=== PATIENT | male | born 1960 | race Caucasian/White ===

== ENCOUNTER 2017-02-06 08:35 | Emergency (ER) | payer OTHER ==
[~2017-02-06] VITALS: Ht 177.8 cm; Wt 136.0 kg
[~2017-02-06 08:35] MED LIST: LISINOPRIL10 MG PO; ULTRAM50 MG OR
[2017-02-06 09:28] LABS: URINE BILIRUBIN - DIPSTICK NEGATIVE (NEGATIVE); URINE BLOOD DIPSTICK TRACE-INTACT (NEGATIVE); URINE CLARITY CLEAR; URINE COLOR YELLOW; URINE GLUCOSE - DIPSTICK NEGATIVE (NEGATIVE); URINE KETONE NEGATIVE (NEGATIVE); URINE LEUK ESTERASE NEGATIVE (NEGATIVE); URINE NITRITE - DIPSTICK NEGATIVE (Negative); URINE PH 5.5 (4.5-8.0); URINE PROTEIN - DIPSTICK NEGATIVE (NEG-TRACE); URINE UROBILINOGEN - DIPSTICK 0.2 E.U./dL (0.2)
[2017-02-06 09:28] LABS: HEMATOCRIT 47.2 % (39.0-50.0); HEMOGLOBIN 15.7 g/dl (14.0-18.0); IMMATURE GRANULOCYTES 0.3 % (0.0-1.0); MEAN CELL VOLUME 88.2 fL CALC (80.0-100.0); MEAN CORPUSCULAR HGB 29.3 pG CALC (26.0-32.0); MEAN CORPUSCULAR HGB CONC 33.3 g/L CALC (32.0-36.0); NEUT# 4.28 thou/uL (1.82-7.42); RED BLOOD COUNT 5.35 mill/uL (4.70-6.10); RED CELL DISTRI WIDTH 13.9 % (11.5-15.5)
[2017-02-06 09:50] LABS: ANION GAP 14 (6-22 (CALC)); BUN 14 mg/dL (9-20); BUN/CREATININE RATIO 23 (12-20 (CALC)); CALCIUM 9.9 mg/dL (8.4-10.2); CARBON DIOXIDE 24 mmol/l (22-30); CHLORIDE 107 mmol/l (95-108); CREATININE 0.6 mg/dL (0.7-1.3); GFR > 60 ML/MIN (>=60 (CALC)); GFR FOR AFR.AMER. > 60 ML/MIN (>=60 (CALC)); GLUCOSE 113 mg/dL (75-110); LIPASE 171 u/l (23-300); POTASSIUM 4.3 mmol/l (3.5-5.1); SODIUM 141 mmol/l (137-146)
[2017-02-06] MEDS ORDERED: CEPHALEXIN500 M1 PO (10:42)
[2017-02-06] MEDS ORDERED: MOTRIN400 MG PO (10:42)
[2017-02-06] MEDS ORDERED: FLEXERIL5 M1 PO (10:42)
[2017-02-06 10:50] VITALS: BP 129/74
== END 2017-02-06 10:50 | disposition home or self-care (01) | DRG 696 ==
LOC: ED 08:35
PROVIDERS: Family Medicine
DX: R31.9 Hematuria, unspecified (principal); I10 Essential (primary) hypertension; R10.9 Unspecified abdominal pain

== ENCOUNTER 2017-11-22 05:59 | Emergency (ER) | payer OTHER ==
[~2017-11-22] VITALS: Ht 177.8 cm; Wt 138.8 kg
[~2017-11-22 05:59] MED LIST changes: +CEPHALEXIN500 M1 PO; +FLEXERIL5 M1 PO; +MOTRIN400 MG PO
[2017-11-22] MEDS ORDERED: FLEXERIL PO (06:20)
[2017-11-22] MEDS ORDERED: TORADOL PO (06:20)
[2017-11-22 06:37] VITALS: BP 146/85
== END 2017-11-22 06:35 | disposition home or self-care (01) | DRG 563 ==
LOC: ED 05:59
DX: S29.012A Strain of muscle and tendon of back wall of thorax, initial encounter (principal); M79.1 Myalgia; X50.9XXA Other and unspecified overexertion or strenuous movements or postures, initial encounter; Y92.89 Other specified places as the place of occurrence of the external cause

== ENCOUNTER 2017-12-05 13:36 | Emergency (ER) | payer OTHER ==
[~2017-12-05] VITALS: Ht 177.8 cm; Wt 136.4 kg
[~2017-12-05 13:36] MED LIST changes: +FLEXERIL PO; +TORADOL PO
[2017-12-05 14:24] LABS: HEMATOCRIT 48.4 % (39.0-50.0); HEMOGLOBIN 16.1 g/dl (14.0-18.0); IMMATURE GRANULOCYTES 0.3 % (0.0-5.0); MEAN CELL VOLUME 87.7 fL CALC (80.0-100.0); MEAN CORPUSCULAR HGB 29.2 pG CALC (26.0-32.0); MEAN CORPUSCULAR HGB CONC 33.3 g/L CALC (32.0-36.0); NEUT# 5.77 thou/uL (1.82-7.42); RED BLOOD COUNT 5.52 mill/uL (4.70-6.10); RED CELL DISTRI WIDTH 13.2 % (11.5-15.5)
[2017-12-05 14:25] LABS: URINE BILIRUBIN - DIPSTICK NEGATIVE (NEGATIVE); URINE BLOOD DIPSTICK TRACE-INTACT (NEGATIVE); URINE COLOR YELLOW; URINE GLUCOSE - DIPSTICK NEGATIVE (NEGATIVE); URINE KETONE NEGATIVE (NEGATIVE); URINE NITRITE - DIPSTICK NEGATIVE (Negative); URINE PH 5.5 (4.5-8.0); URINE PROTEIN - DIPSTICK NEGATIVE (NEG-TRACE); URINE UROBILINOGEN - DIPSTICK 0.2 E.U./dL (0.2)
[2017-12-05 14:37] LABS: URINE CLARITY CLEAR; URINE LEUK ESTERASE SMALL (NEGATIVE)
[2017-12-05 14:39] LABS: URINE RBC 0-2 RBC/hpf (0-5); URINE WBC 0-2 WBC/hpf (0-5)
[2017-12-05 14:45] LABS: ALBUMIN 3.9 g/dL (3.2-5.0); ALKALINE PHOSPHATASE 91 u/l (38-126); ANION GAP 11 (6-22 (CALC)); BILIRUBIN, TOTAL 0.6 mg/dL (0.0-1.4); BUN 13 mg/dL (9-20); BUN/CREATININE RATIO 21 (12-20 (CALC)); CARBON DIOXIDE 26 mmol/l (22-30); CHLORIDE 104 mmol/l (95-108); CREATININE 0.6 mg/dL (0.7-1.3); GFR > 60 ML/MIN (>=60 (CALC)); GFR FOR AFR.AMER. > 60 ML/MIN (>=60 (CALC)); POTASSIUM 4.3 mmol/l (3.5-5.1); SGOT/AST 19 u/l (17-59); SGPT/ALT 24 u/l (21-72); SODIUM 138 mmol/l (137-146)
[2017-12-05] MEDS ORDERED: ULTRAM50 M1 PO (18:05)
[2017-12-05] MEDS ORDERED: CIPROFLOXACN750 MG PO (18:05)
[2017-12-05 18:06] VITALS: BP 129/69
== END 2017-12-05 18:16 | disposition home or self-care (01) | DRG 690 ==
LOC: ED 13:36
PROVIDERS: Emergency Medicine
DX: N39.0 Urinary tract infection, site not specified (principal); N28.1 Cyst of kidney, acquired

== ENCOUNTER 2019-01-16 04:42 | Emergency (ER) | payer OTHER ==
[~2019-01-16] VITALS: Ht 177.8 cm; Wt 141.0 kg
[~2019-01-16 04:42] MED LIST changes: +CIPROFLOXACN750 MG PO; +ULTRAM50 M1 PO
[2019-01-16] MEDS ORDERED: IBUPROFEN600 MG PO (06:50)
[2019-01-16 06:52] VITALS: BP 129/70
== END 2019-01-16 06:54 | disposition home or self-care (01) | DRG 605 ==
LOC: ED 04:42
DX: S60.211A Contusion of right wrist, initial encounter (principal); S20.211A Contusion of right front wall of thorax, initial encounter; W01.0XXA Fall on same level from slipping, tripping and stumbling without subsequent striking against object, initial encounter; Y92.009 Unspecified place in unspecified non-institutional (private) residence as the place of occurrence of the external cause

== ENCOUNTER 2020-01-23 19:54 | Emergency (ER) | payer SELFPAY ==
[~2020-01-23] VITALS: Ht 170.2 cm; Wt 136.4 kg
[~2020-01-23 19:54] MED LIST changes: +IBUPROFEN600 MG PO
[2020-01-23 20:43] LABS: HEMATOCRIT 52.1 % (39.0-50.0); HEMOGLOBIN 16.5 g/dl (14.0-18.0); IMMATURE GRANULOCYTES 0.3 % (0.0-5.0); MEAN CELL VOLUME 86.7 fL CALC (80.0-100.0); MEAN CORPUSCULAR HGB 27.5 pG CALC (26.0-32.0); MEAN CORPUSCULAR HGB CONC 31.7 g/dL CAL (32.0-36.0); NEUT# 7.03 thou/uL (1.82-7.42); RED BLOOD COUNT 6.01 mill/uL (4.70-6.10); RED CELL DISTRI WIDTH 13.3 % (11.5-15.5)
[2020-01-23] MEDS ORDERED: LISINOPRIL10 MG PO (20:55)
[2020-01-23] MEDS ORDERED: ATIVAN1 MG PO (20:55)
[2020-01-23 20:56] LABS: ALBUMIN 4.3 g/dL (3.2-5.0); ALKALINE PHOSPHATASE 105 u/l (38-126); ANION GAP 10 (6-22 (CALC)); BILIRUBIN, TOTAL 0.6 mg/dL (0.0-1.4); BUN 16 mg/dL (9-20); BUN/CREATININE RATIO 23 (12-20 (CALC)); CARBON DIOXIDE 30 mmol/l (22-30); CHLORIDE 99 mmol/l (95-108); CREATININE 0.7 mg/dL (0.7-1.3); GFR > 60 ML/MIN (>=60 (CALC)); GFR FOR AFR.AMER. > 60 ML/MIN (>=60 (CALC)); POTASSIUM 4.4 mmol/l (3.5-5.1); SGOT/AST 25 u/l (17-59); SODIUM 135 mmol/l (137-146); TOTAL PROTEIN 7.3 g/dL (6.3-8.2)
[2020-01-23] MEDS ORDERED: PAXIL30 MG PO (20:56)
[2020-01-23] MEDS ORDERED: INDOMETHACIN50 MG PO (20:56)
[2020-01-23] MEDS ORDERED: ALLOPURINOL100 MG PO (21:11)
[2020-01-23] MEDS ORDERED: PROBENECID/COLC1 TAB PO (21:11)
[2020-01-23 22:12] VITALS: BP 120/58
== END 2020-01-23 22:12 | disposition home or self-care (01) | DRG 554 ==
LOC: ED 19:54
DX: M10.062 Idiopathic gout, left knee (principal)

== ENCOUNTER 2021-01-16 13:27 | Inpatient (IN) | payer OTHER ==
[2021-01-16] VITALS (8 sets, daily range): BP systolic 123–142; BP diastolic 60–75
[~2021-01-16] VITALS: Ht 167.6 cm; Wt 151.0 kg
[~2021-01-16 13:27] MED LIST changes: +ALLOPURINOL100 MG PO; +ATIVAN1 MG PO; +INDOMETHACIN50 MG PO; +PAXIL40 MG PO; +PROBENECID/COLC1 TAB PO
--- NOTE | 2021-01-16 14:13 | NUR ---
TO ROOM VIA WHEELCHAIR
[2021-01-16 14:50] LABS: HEMATOCRIT 55.8 % (39.0-50.0); HEMOGLOBIN 18.3 g/dl (14.0-18.0); IMMATURE GRANULOCYTES 0.4 % (0.0-5.0); MEAN CELL VOLUME 88.3 fL CALC (80.0-100.0); MEAN CORPUSCULAR HGB CONC 32.8 g/dL CAL (32.0-36.0); NEUT# 7.79 thou/uL (1.82-7.42); RED BLOOD COUNT 6.32 mill/uL (4.70-6.10); RED CELL DISTRI WIDTH 13.9 % (11.5-15.5)
[2021-01-16 15:06] LABS: ALBUMIN 3.8 g/dL (3.2-5.0); ALKALINE PHOSPHATASE 102 u/l (38-126); ANION GAP 13 (6-22 (CALC)); BUN 15 mg/dL (9-20); BUN/CREATININE RATIO 17 (12-20 (CALC)); CARBON DIOXIDE 29 mmol/l (22-30); CHLORIDE 97 mmol/l (95-108); CREATININE 0.9 mg/dL (0.7-1.3); GFR > 60 ML/MIN (>=60 (CALC)); GFR FOR AFR.AMER. > 60 ML/MIN (>=60 (CALC)); POTASSIUM 4.4 mmol/l (3.5-5.1); SODIUM 135 mmol/l (137-146); TOTAL PROTEIN 7.6 g/dL (6.3-8.2)
[2021-01-16 15:08] LABS: BILIRUBIN, TOTAL 1.1 mg/dL (0.0-1.4); SGOT/AST 94 u/l (17-59)
--- NOTE | 2021-01-16 15:20 | NUR ---
RECIEVED PT FROM VANCE RN, PT IS SOB ON 10L NC, 89% ON NETWORK ANNOUNCER. USING ACCESORY MUSCLES TO BREATHE. RT BEDSIDE, AWARE, WILL CONTINUE TO MONITOR
--- NOTE | 2021-01-16 16:30 | NUR ---
PT RESTING ON CARDIAC MONITORING, NO CP OR COMPLAINTS
--- NOTE | 2021-01-16 17:35 | NUR ---
PT AOX3, ATE DINNER AND IS COMFORTABLE, NO COMPLAINTS, ON MONITOR
--- NOTE | 2021-01-16 19:38 | NUR ---
RECEIVED REPORT FROM PEARL VALVERDE FROM E.D.
--- NOTE | 2021-01-16 19:38 | NUR ---
REPORT GIVEN TO FOSTER CARE WORKER, TRAVELING SALES EXECUTIVE AND OXYGEN ON PATIENT, TRANSPORTED TO ICU VIA STRETCHER
--- NOTE | 2021-01-16 20:30 | NUR ---
RECEIVED PATIENT TO ROOM 4 VIA STRETCHER WITH O2 FROM THE ED IN STABLE CONDITION. PATIENT IS ALERT AND ORIENTED. ABLE TO MAKE NEEDS KNOWN. RESPIRATIONS EVEN AND LABORED. ABLE TO HOLD A SHORT CONVERSATION. LUNGS CLEAR AND DIMINISHED. ON TELEMETRY. HR REG. DENIES PAIN. SKIN COOL. INTACT. VSS. CURRENTLY ON 11 LITERS N/C SATTING IN LOW 90S. ASSESSMENT COMPLETED AND CHARTED. BED IN LOW POSITION. CALL LIGHT WITHIN REACH.
--- NOTE | 2021-01-16 21:30 | NUR ---
LOVENOX GIVEN. USE OF ACCESSORY MUSCLES OBSERVED. OXYGENSATURATION NOT MAINTAINTED ABOVE 90%. RT CALLED, SINDI NUNEZ CALLED, NEW ORDERS RECEIVED. PATIENT PUT ON BIPAP/AVAP. PATIENT RESTING. NO COMPLAINTS.
--- NOTE | 2021-01-16 21:55 | NUR ---
PATIENT PLACED ON BIPAP/AVAP WITH SETTINGS OF 15/8 80% FIO2. TV OF 420 WITH A RATE OF 16. PATIENT TOLERATING WELL. O2 SATS ARE NOW 94%>.
--- NOTE | 2021-01-16 22:00 | NUR ---
DAUGHTER CALLED FOR PATIENT INFORMATION. CORRECT CODE GIVEN. UPDATED DAUGHTER ON PATIENT CONDITION.
--- NOTE | 2021-01-16 23:49 | NUR ---
XANAX 0.5 MG PO GIVEN WITH POSITIVE EFFECT. PATIENT OXYGEN SATURATION CONTINUES TO FLUCTUATE BETWEEN 87-91%. PATIENT REMAINS COOL AND CLAMMY. BLANKET OFFERED AND REJECTED. FALL PRECAUTIONS MAINTAINED.
[2021-01-17] VITALS (17 sets, daily range): BP systolic 94–159; BP diastolic 48–77
--- NOTE | 2021-01-17 01:23 | NUR ---
CALLED TO CHECK ON PATIENT'S CONDITION.
--- NOTE | 2021-01-17 01:44 | NUR ---
ASKED PATIENT TO PRONE. PATIENT IN 3/4 PRONE POSITIN. OXYGEN SATURATION UP TO 94% FROM 87-88%.
--- NOTE | 2021-01-17 02:47 | NUR ---
PATIENT ASKED TO REPOSITION D/T OXYGEN SATURATION 84%. PATIENT TURNED TO OTHER SIDE AND NOW SATTING 99%. MONITORING.
--- NOTE | 2021-01-17 03:36 | NUR ---
PATIENT WAS CONSISTENTLY SATTING 84-91%. ASKED PATIENT TO TURN TO OTHER SIDE. COMPLIANT. NOW OXYGEN SATURATION CONSITENTLY 97%. NO ACUTE DISTRESS OBSERVED. BED IN LOW POSITION. CALL LIGHT WITHIN REACH.
[2021-01-17 05:28] LABS: HEMATOCRIT 54.4 % (39.0-50.0); HEMOGLOBIN 17.4 g/dl (14.0-18.0); IMMATURE GRANULOCYTES 0.4 % (0.0-5.0); MEAN CELL VOLUME 90.2 fL CALC (80.0-100.0); MEAN CORPUSCULAR HGB 28.9 pG CALC (26.0-32.0); NEUT# 5.59 thou/uL (1.82-7.42); RED BLOOD COUNT 6.03 mill/uL (4.70-6.10); RED CELL DISTRI WIDTH 13.7 % (11.5-15.5)
[2021-01-17 06:04] LABS: ALBUMIN 3.1 g/dL (3.2-5.0); ALKALINE PHOSPHATASE 87 u/l (38-126); ANION GAP 12 (6-22 (CALC)); BUN 20 mg/dL (9-20); BUN/CREATININE RATIO 28 (12-20 (CALC)); C-REACTIVE PROTEIN 5.6 mg/dL (0-0.9); CARBON DIOXIDE 31 mmol/l (22-30); CHLORIDE 99 mmol/l (95-108); CREATININE 0.7 mg/dL (0.7-1.3); GFR > 60 ML/MIN (>=60 (CALC)); GFR FOR AFR.AMER. > 60 ML/MIN (>=60 (CALC)); SGOT/AST 69 u/l (17-59); SODIUM 137 mmol/l (137-146); TOTAL PROTEIN 6.2 g/dL (6.3-8.2)
[2021-01-17 06:05] LABS: BILIRUBIN, TOTAL 0.5 mg/dL (0.0-1.4)
--- NOTE | 2021-01-17 07:32 | NUR ---
PT SLEEPING IN BED. AWAKENED TO COMPLETE ASSESSMENT. PT A&O . CURRENTLY ON BIPAP 02/05 100% SUSTAINING 91-93%. CLEAR/DIMINISHED BREATH SOUNDS UPON AUSCULTATION. HYPOTENSIVE. CURRENTLY SB 54 ON INJECTION MOLDER. TRACE EDEMA NOTED TO BILATERAL ANKLES. ACTIVE BOWEL SOUNDS X4 QUADRANTS. IV FOUND DISLODGED, IV TO BE REPLACED BY THIS VENETIAN BLIND WASHER. ASSESSMENT COMPLETED. DISCUSSED POC. CALL LIGHT WITHIN REACH. ISOLATION PRECAUTIONS IN PLACE.
--- NOTE | 2021-01-17 07:36 | NUR ---
TITRATED PARAMETERS PER PT SPO2. WILL REEVALUATE O2 DEMAND WHEN PT AWAKENS.
--- NOTE | 2021-01-17 07:47 | NUR ---
PT HYPOTENSIVE, MANUALLY 80/50; DR MOON NOTIFIED. ORDER OBTAINED FOR 1L NS BOLUS X1. ORDER WRITTEN AND FAXED TO PHARMACY. #22G TO INITIATED X1 ATTEMPT BY THIS ACETYLENE BURNER, #20G REMOVED IT DISLODGED. NO OTHER NEEDS AT THIS TIME, RT AT BEDSIDE TO CHANGE PT OVER TO HF NC. PT TOLERATING WELL. RT AND THIS ACETYLENE BURNER TO MONITOR FOR O2 NEEDS. CALL LIGHT WITHIN REACH.
--- NOTE | 2021-01-17 09:22 | NUR ---
IVF BOLUS COMPLETED; BP UPON RE-EVALUATION 103/52. PT ASYMPTOMATIC. CALL LIGHT WITHIN REACH.
--- NOTE | 2021-01-17 09:31 | NUR ---
DR MOON AT BEDSIDE DISCUSSING POC
--- NOTE | 2021-01-17 09:59 | NUR ---
PT PLACED ON 10L HFNC. TL WELL AT THIS TIME. MARINE CONSULTANT TO MONITOR.
--- NOTE | 2021-01-17 11:57 | NUR ---
PT SITTING IN BED EATING LUNCH. O2 VIA NC @10L HF REMAINS. NO OTHER NEEDS AT THIS TIME. CALL LIGHT WITHIN REACH.
--- NOTE | 2021-01-17 15:47 | NUR ---
COMPLETE BEDBATH COMPLETED BY THIS WOOL FLEECE GRADER AND Betzaida REEDER CNA. PT TOLERATED WELL. REDNESS NOTED TO BUTTOCKS AND GROIN, BARRIER CREAM APPLIED. CALL LIGHT WITHIN REACH.
--- NOTE | 2021-01-17 18:10 | NUR ---
PT IN BED WATCHING TV. HF @15L IN PLACE. NO OTHER NEEDS AT THIS TIME. CALL LIGHT WITHIN REACH.
--- NOTE | 2021-01-17 20:15 | NUR ---
RESTING IN BED IN HIGH FOWLERS POSITON. WATCHING TV. RESP SHALLOW/LABORED. ON O2 AT 15 L HFNC. O2 SAT 93% BREATH SOUNDS DIMINISHED THROUGHOUT LUNG XIONG. ABD OBESE, SOFT WITH BOWEL SOUNDS. PATIENT VOIDS SMALL AMOUNTS MOISES URINE IN URINAL. SALINE LOCK IN PLACE IN RH. ASE CERTIFIED TECHNICIAN SHOWS SR. DISCUSSED PLAN OF CARE. DENIES NEEDS AT THIS TIME. CALL MEDINA IN PLACE. .
--- NOTE | 2021-01-17 22:00 | NUR ---
PATIENT VOIDED SMALL AMOUNT MOISES URINE. GIVEN HS SNACK PER HIS REQUEST. PATIENT ABLE TO REPOSITION HIMSELF IN BED. VSS. O2 SAT 88% WILL CONTINUE TO CLOSELY MONITOR.
[2021-01-18] VITALS (24 sets, daily range): BP systolic 85–146; BP diastolic 51–88
--- NOTE | 2021-01-18 00:15 | NUR ---
BLADDER SCAN ON PATIENT REVEALS 937 ML. #16 FR COLLINS CATHTER INSERTED WITHOUT DIFFICULTY BY Anthony HORNE/RN. COLLINS IMMEDIATELY DRAINED 850 ML CLEAR MOISES URINE. UA OBTAINED AND SENT TO LAB.
[2021-01-18 01:34] LABS: URINE BILIRUBIN - DIPSTICK NEGATIVE (NEGATIVE); URINE BLOOD DIPSTICK NEGATIVE (NEGATIVE); URINE COLOR YELLOW; URINE GLUCOSE - DIPSTICK NEGATIVE (NEGATIVE); URINE KETONE NEGATIVE (NEGATIVE); URINE LEUK ESTERASE NEGATIVE (NEGATIVE); URINE PROTEIN - DIPSTICK 30 mg/dL (NEG-TRACE); URINE SPECIFIC GRAVITY 1.025; URINE UROBILINOGEN - DIPSTICK 0.2 E.U./dL (0.2)
[2021-01-18 01:35] LABS: URINE NITRITE - DIPSTICK NEGATIVE (Negative)
[2021-01-18 01:52] LABS: URINE MUCUS FEW hpf (NONE-FEW); URINE SQUAMOUS EPITHELIAL CELL FEW EPI/hpf (0-FEW); URINE WBC 0-2 WBC/hpf (0-5)
--- NOTE | 2021-01-18 02:00 | NUR ---
O2 SAT DROPPED TO 73% PATIENT FOUND WITH O2 OFF. REPLACED O2. O2 SAT GRADUALLY INCREASED TO 91% WILL CONTINUE TO CLOSELY MONITOR PATIENT.
--- NOTE | 2021-01-18 02:15 | NUR ---
O2 SAT DROPPED AGAIN TO 60'S. O2 ON PATIENT, GOOD WAVEFORM NOTED AND CORRELATES WITH HR. CALL TO RT. PATIENT PLACED ON CPAP 12 CM/80% FIO2. O2 SATS PICKED UP INTO THE LOW 90'S.
--- NOTE | 2021-01-18 04:00 | NUR ---
O2 SATS 94-96% SINCE BEING PLACED ON CPAP.
[2021-01-18 05:45] LABS: HEMOGLOBIN 16.8 g/dl (14.0-18.0); MEAN CELL VOLUME 93.3 fL CALC (80.0-100.0); MEAN CORPUSCULAR HGB CONC 31.1 g/dL CAL (32.0-36.0); RED BLOOD COUNT 5.79 mill/uL (4.70-6.10); RED CELL DISTRI WIDTH 13.9 % (11.5-15.5)
[2021-01-18 05:57] LABS: ANION GAP 10 (6-22 (CALC)); BUN 21 mg/dL (9-20); BUN/CREATININE RATIO 38 (12-20 (CALC)); CARBON DIOXIDE 34 mmol/l (22-30); CHLORIDE 103 mmol/l (95-108); CREATININE 0.6 mg/dL (0.7-1.3); GFR > 60 ML/MIN (>=60 (CALC)); GFR FOR AFR.AMER. > 60 ML/MIN (>=60 (CALC)); POTASSIUM 5.1 mmol/l (3.5-5.1); SODIUM 141 mmol/l (137-146)
--- NOTE | 2021-01-18 06:00 | NUR ---
VSS. CONTINUES ON CPAP. O2 SAT 95% MONITOR SR. COLLINS DRAINS CLEAR MOISES URINE.
--- NOTE | 2021-01-18 06:52 | NUR ---
TITRATED PARAMTERS PER PT SPO2. VSS. PT VERONICA YING AT THIS TIME. LAYING IN BED C HOB ELEVATED, ON NIV. NAD. GAS LINE REPAIRER TO MONITOR. WILL CHANGE TO HFNC WHEN PT IS AWAKE.
--- NOTE | 2021-01-18 07:25 | NUR ---
pt resting in bed with eyes closed; no apparent distress noted; easy aroused; assessment completed at this time; pt alert to person and place; denies pain; no n/v noted; resp even and unlabored; lungs clear/ diminished; skin color wnl; cpap intact and maintained at rate of 12, 85% FiO2; hr reg; strong pulses; no edema noted; sr on monitor; abd soft with bs present; no bm noted per real estate underwriter; cardenas to gravity draining clear yellow urine; #22 saline locked to rh; no redness or edema noted at site; pt very obese; plan of care/ am meds explained; call light within reach; will continue to monitor
--- NOTE | 2021-01-18 08:20 | NUR ---
resting in bed with eyes closed; cpap intact and maintainted; cardenas to gravity; will continue to monitor
--- NOTE | 2021-01-18 09:00 | NUR ---
pt converted to 15L high flow for breakfast; o2 sat 91%; am med administered; breakfast provided; pt encouraged to assist with repositioning; sr on monitor; will continue to monitor
--- NOTE | 2021-01-18 09:20 | NUR ---
Dr Copeland present at bedside to assess pt and discuss plan of care
--- NOTE | 2021-01-18 09:40 | NUR ---
PT ON HFNC VERONICA WELL. CUSTOMER ACCOUNTS ADVISOR TO MONITOR.
--- NOTE | 2021-01-18 10:10 | NUR ---
pt asleep; no apparent distress noted; iv intact; 15L o2 maintained; o2 sat 90%; cardenas to gravity; will continue to monitor
--- NOTE | 2021-01-18 12:20 | NUR ---
o2 sat 78%; pt converted to cpap at this time; resp slightly labored; iv intact; cardenas to gravity; sr on monitor; call light within reach; will continue to monitor
--- NOTE | 2021-01-18 13:00 | NUR ---
titrated niv paramters as per pt spo2 and tidal volume measurements. pt to lwellat this time. no distress noted. pt resting comfortably in bed, asleep. investment specialist to monitor.
--- NOTE | 2021-01-18 14:00 | NUR ---
resting in bed with eyes closed; no apparent distress noted; cpap intact and maintained; iv intact; cardenas to gravity; sr on monitor; will continue to monitor
--- NOTE | 2021-01-18 15:58 | NUR ---
call received from spouse; passcode verified; update provided
--- NOTE | 2021-01-18 16:15 | NUR ---
pt resting in bed with eyes closed; cpap intact and maintained; iv intact and patent; sr on monitor; cardenas to gravity; call light within reach; will continue to monitor
--- NOTE | 2021-01-18 18:00 | NUR ---
resting in bed with eyes closed; easily aroused; pt offers no complaints; pt converted to 15L nc for dinner; iv intact; cardenas to gravity; sr on monitor; call light within reach
--- NOTE | 2021-01-18 19:20 | NUR ---
RESTING IN BED WATCHING TV.
--- NOTE | 2021-01-18 20:30 | NUR ---
RESTING IN BED ON ROUNDS. JOHN USING HIS PERSONAL CELL PHONE TO SPEAK WITH FAMILY. VSS. RESP SHALLOW, LABORED. O2 ON AT 15 L NC. O2 SAT 93% BREATH SOUNDS DIMINISHED THROUGHOUT. SALINE LOCK INTACT IN RH. LIAISON INSPECTION LABORATORY ASSISTANT SHOWS SR. DISCUSSED PLAN OF CARE. DENIES NEEDS AT THIS TIME. CALL MEDINA IN REACH.
--- NOTE | 2021-01-18 22:00 | NUR ---
WATCHIN TV. ON AND OFF PHONE WITH FAMILY. VSS. SR ON MONITOR. COLLINS DRAINS CLEAR MOISES URINE.
--- NOTE | 2021-01-18 23:25 | NUR ---
PLACED ON CPAP BY RT. 15/60%
[2021-01-19] VITALS (20 sets, daily range): BP systolic 84–157; BP diastolic 55–80
--- NOTE | 2021-01-19 | NUR ---
RESTING WITH EYES CLOSED. RESP SHALLOW, SLT LABORED. ON CPAP. VSS. SR ON MONITOR. O2 SAT 89%
--- NOTE | 2021-01-19 02:00 | NUR ---
CPAP MASK OFF PATIENT, O2 DROPPED TO 83% REPLACED MASK AND SAT INCREASED TO UPPER 80'S-OW 90'S. ASSISTED PATIENT TO REPOSITION IN BED.
--- NOTE | 2021-01-19 04:00 | NUR ---
VSS. REMAINS ON CPAP, TOLERATING WELL. SR ON MONITOR.
[2021-01-19 05:47] LABS: ANION GAP 8 (6-22 (CALC)); BUN 24 mg/dL (9-20); BUN/CREATININE RATIO 43 (12-20 (CALC)); C-REACTIVE PROTEIN 1.6 mg/dL (0-0.9); CARBON DIOXIDE 35 mmol/l (22-30); CHLORIDE 101 mmol/l (95-108); CREATININE 0.5 mg/dL (0.7-1.3); GFR > 60 ML/MIN (>=60 (CALC)); GFR FOR AFR.AMER. > 60 ML/MIN (>=60 (CALC)); POTASSIUM 4.9 mmol/l (3.5-5.1); SODIUM 139 mmol/l (137-146)
[2021-01-19 05:52] LABS: HEMATOCRIT 52.4 % (39.0-50.0); HEMOGLOBIN 16.4 g/dl (14.0-18.0); IMMATURE GRANULOCYTES 0.8 % (0.0-5.0); MEAN CELL VOLUME 93.6 fL CALC (80.0-100.0); MEAN CORPUSCULAR HGB 29.3 pG CALC (26.0-32.0); MEAN CORPUSCULAR HGB CONC 31.3 g/dL CAL (32.0-36.0); NEUT# 4.56 thou/uL (1.82-7.42); RED BLOOD COUNT 5.6 mill/uL (4.70-6.10); RED CELL DISTRI WIDTH 13.9 % (11.5-15.5)
--- NOTE | 2021-01-19 08:00 | NUR ---
pt awake in bed; no apparent distress noted; pt offers no complaints; assessment completed at this time; pt alert and oriented; denies pain; no n/v noted; resp even and unlabored/ shallow; lungs clear/ diminished; skin color wnl; cpap intact with settings of 15 rate and 60% FiO2; pt converted to 15L high flow for breatfast; special forces specialist dry cough noted; hr reg; wk right pedal pulses; edema noted; sr on monitor; abd soft/ distended/obese with bs present; no bm noted per sign writer letterer or painter; cardenas to gravity draining clear yellow urine; #22 saline locked to rh; no redness or edema noted at site; pt assisted to bsc x2 max staff; tolerated activity well; exertional sob noted; deep breathing tech explained; call light within reach; will continue to monitor
--- NOTE | 2021-01-19 08:08 | NUR ---
PT TAKEN OFF CPAP AND PLACED ON 15 LITER HFNC. SATS 92%. PT IS UP IN CHAIR AND ENCOURAGED TO DEEP BREATH IN THROUGH NOSE AND OUT THROUGH MOUTH.
--- NOTE | 2021-01-19 09:12 | NUR ---
Dr Copeland present at bedside to assess pt and discuss plan of care
--- NOTE | 2021-01-19 10:00 | NUR ---
awake in recliner; offers no complaints; no apparent distress noted; o2 per nc at 15L; st on monitor; cardenas to gravity; call light within reach
--- NOTE | 2021-01-19 10:16 | NUR ---
PT REMAINS UP IN CHAIR AND ON 15L HFNC, WITH SATS OF 93%.
--- NOTE | 2021-01-19 12:00 | NUR ---
awake in recliner eating lunch; no apparent distress noted; o2 per nc; iv intact; sr on monitor; call light within reach; will continue to monitor
--- NOTE | 2021-01-19 12:20 | NUR ---
pt assisted back to bed as per request
--- NOTE | 2021-01-19 14:20 | NUR ---
resting in bed with eyes closed; no apparent distress noted; iv intact and patent; sr on monitor; cpap intact and maintained; call light within reach; will continue to monitor
--- NOTE | 2021-01-19 15:14 | NUR ---
PT REMAINS ON 15 LITER NC WITH SATS OF 92%
--- NOTE | 2021-01-19 17:36 | NUR ---
pt noted to have removed cpap; pt states "I don't know what happened"; pt assist to recliner at this time; meal provided from family; sr on monitor;o2 per nc at 15L; cardenas to gravity; will continue to monitor
--- NOTE | 2021-01-19 19:30 | NUR ---
PATIENT SITTING UP IN CHAIR. WATCHING TV. NO COMPLAINTS VOICED. VSS. O2 SAT 88% ON HFNC AT 15 L.
--- NOTE | 2021-01-19 21:00 | NUR ---
ASSISTED BACK TO BED. RESP SHALLOW. SLT LABORED AT REST, COY. REMAINS ON 15 L HFNC. SHIFT ASSESSMENT COMPLETED. SITE LEASING AGENT SHOWS SR.
--- NOTE | 2021-01-19 22:00 | NUR ---
RESTING IN BED WATCHING TV. EATING HS SNACK. VSS. O2 SAT 96%
--- NOTE | 2021-01-19 23:00 | NUR ---
PATIENT ON CPAP FOR THE NIGHT BY RT.
[2021-01-20] VITALS (19 sets, daily range): BP systolic 99–149; BP diastolic 50–80
--- NOTE | 2021-01-20 | NUR ---
RESTING WITH EYES CLOSED. VSS.
--- NOTE | 2021-01-20 04:00 | NUR ---
VSS. RESTING QUIETLY. SB-SR ON MONITOR.
--- NOTE | 2021-01-20 06:00 | NUR ---
VSS. REMAINS ON CPAP. KARINA PATENT. MONITOR SB-SR.
[2021-01-20 06:09] LABS: HEMATOCRIT 49.4 % (39.0-50.0); HEMOGLOBIN 15.6 g/dl (14.0-18.0); IMMATURE GRANULOCYTES 0.9 % (0.0-5.0); MEAN CORPUSCULAR HGB 29.1 pG CALC (26.0-32.0); MEAN CORPUSCULAR HGB CONC 31.6 g/dL CAL (32.0-36.0); NEUT# 3.97 thou/uL (1.82-7.42); RED BLOOD COUNT 5.37 mill/uL (4.70-6.10); RED CELL DISTRI WIDTH 13.3 % (11.5-15.5)
[2021-01-20 06:26] LABS: ANION GAP 9 (6-22 (CALC)); BUN 22 mg/dL (9-20); BUN/CREATININE RATIO 39 (12-20 (CALC)); C-REACTIVE PROTEIN 0.8 mg/dL (0-0.9); CARBON DIOXIDE 34 mmol/l (22-30); CHLORIDE 100 mmol/l (95-108); CREATININE 0.6 mg/dL (0.7-1.3); GFR > 60 ML/MIN (>=60 (CALC)); GFR FOR AFR.AMER. > 60 ML/MIN (>=60 (CALC)); POTASSIUM 4.6 mmol/l (3.5-5.1); SODIUM 138 mmol/l (137-146)
--- NOTE | 2021-01-20 07:00 | NUR ---
REPORT RECEIVED FROM NAE BURRELL
--- NOTE | 2021-01-20 07:42 | NUR ---
RT AT BEDSIDE PLACING PT ON O2 @ 15L HF NC AT THIS TIME FROM CPAP.
--- NOTE | 2021-01-20 07:45 | NUR ---
PT RESTING IN SEMI FOWLERS POSITION,A&0 X3;VS OBTAINED AND ASSESSMENT COMPLETED;PT RE-POSITIONED INTO RECLINER AT THIS TIME;PT DENIES ANY CURRENT PAIN OR DISCOMFORTS,PAIN SCALE AND REPORTING EDUCATED;RESPIRATIONS SHALLOW ON O2 @ 15L HF NC, CLEAR/DIMINISHED LUNG SOUNDS;ABDOMEN DISTENDED/SOFT ON PALPATION AND ACTIVE IN ALL 4 QUADRANTS,LAST BM 01/16/21;PT MEDICATED WITH PRN MOM TO ASSIST WITH BOWEL CARE;COLLINS CATHETER PATENT DRAINING TO GRAVITY WITH EASE;WEAK PEDAL PULSES;SKIN INTACT;CARDIAC MONITORING IN PLACE;#22G TO RH FLUSHED AND PATENT,SITE APPEARS HEALTHY;PT REMAINS IN AIR/CONTACT PRECAUTIONS DUE TO COVID19 DX;PT DENIES ANY ADDITIONAL NEEDS AND IS ENCOURAGED TO CALL FOR ASSISTANCE IF NEEDED;FALL PRECAUTIONS IN PLACE WITH CALL LIGHT IN REACH;WILL CONTINUE TO MONITOR
--- NOTE | 2021-01-20 07:47 | NUR ---
PT TAKEN OFF BIPAP AND PLACED ON 15L HFNC, SATS 96%
--- NOTE | 2021-01-20 08:34 | NUR ---
AT BEDSIDE DISCUSSING POC.
--- NOTE | 2021-01-20 10:00 | NUR ---
PT RESTING IN RECLINER;RESPIRATIONS EVEN AND UNLABORED ON O2 @ 15L HF NC;PT DENIES ANY CURRENT PAIN OR NEEDS;CARDIAC MONITORING IN PLACE;IV SITE PATENT;PT ENCOURAGED TO CALL FOR ASSISTANCE IF NEEDED;CALL LIGHT IN REACH;WILL CONTINUE TO MONITOR
--- NOTE | 2021-01-20 12:15 | NUR ---
PT RESTING IN RECLINER;RESPIRATIONS EVEN AND UNLABORED ON O2 @ 15L HF NC;PT DENIES ANY CURRENT PAIN OR NEEDS;CARDIAC MONITORING IN PLAVE;IV SITE PATENT;PT ENCOURAGED TO CALL FOR ASSISTANCE IF NEEDED;CALL LIGHT IN REACH;WILL CONTINUE TO MONITOR
--- NOTE | 2021-01-20 14:10 | NUR ---
PT OOB RESTING IN RECLINER;RESPIRATIONS REMAIN EVEN AND UNLABORED ON O2 @ 15L HF NC;PT DENIES ANY CURRENT PAIN OR NEEDS;CARDIAC MONITORING IN PLACE;COLLINS CATHETER PATENT;ABX STARTED AT RH PER ORDER;PT DENIES ANY ADDITIONAL NEEDS AND IS ENCOURAGED TO CALL FOR ASSISTANCE IF NEEDED;CALL LIGHT IN REACH;WILL CONTINUE TO MONITOR
--- NOTE | 2021-01-20 16:00 | NUR ---
PT REMAINS OOB RESTING IN RECLINER WATCHING TV;RESPIRATIONS REMAIN EVEN AND UNLABORED ON O2 @ 15L HF NC;PT DENIES ANY CURRENT PAIN OR NEEDS;CARDIAC MONITORING IN PLACE;IV SITE TO RH PATENT;COLLINS CATHETER DRAINING TO GRAVITY WITH EASE;ALL SAFETY PRECAUTIONS IN PLACE WITH CALL LIGHT IN REACH;WILL CONTINUE TO MONITOR
--- NOTE | 2021-01-20 17:40 | NUR ---
PT OOB RESTING IN RECLINER;RESPIRATIONS EVEN AND UNLABORED ON O2 @ 15L HF NC;PT DENIES ANY CURRENT PAIN OR NEEDS;CARDIAC MONITORING IN PLACE;#22G TO RH INFUSING ABX PER ORDER;COLLINS CATHETER DRAINING TO GRAVITY WITH EASE;PT ENCOURAGED TO CALL FOR ASSISTANCE IF NEEDED;CALL LIGHT IN REACH;WILL CONTINUE TO MONITOR
--- NOTE | 2021-01-20 18:50 | NUR ---
PT REMOVED RH IV SITE WITH CATHETER INTACT. NEW #22G STARTED TO LH ON 1ST ATTEMPT BY THIS WRITTER, PT TOLERATED WELL.WILL CONTINUE TO MONITOR
--- NOTE | 2021-01-20 19:00 | NUR ---
REPORT GIVEN BY BENI MCDOWELL. PATIENT IS ALERT AND ORIENTED X 4 BUT FORGETFUL. 1 PERSON ASSIST TO BSC. CURRENTLY SITTING IN BEDSIDE RECLINER. 15L HI-FLOW O2 AND CPAP WHILE IN BED. PATIENT KEEPS REMOVING PULSE O2 AND STATING HE IS UNSURE HOW IT IS HAPPENING. COLLINS DRAINING TO GRAVITY CLEAR YELLOW URINE. SKIN INTACT. IV SLAINE LOCKED. PLAN OF CARE DISCUSSED. PATIENT INFORMED TO CALL WITH ANY QUESTIONS OR CONCERNS.FALL AND SAFTEY PRECAUTIONS IN PLACE.
--- NOTE | 2021-01-20 19:39 | NUR ---
PATIENT STATES HIS IV JUST KEEPS FALLING OUT AND HE IS UNSURE OF HOW IT IS COMING OUT.
--- NOTE | 2021-01-20 21:00 | NUR ---
PATIENT PLACED ON CPAP AND WENT BACK TO BED
--- NOTE | 2021-01-20 22:14 | NUR ---
RT AT BEDSIDE, PATIENT HAS REMOVED CPAP AND PULSE OX
--- NOTE | 2021-01-20 22:33 | NUR ---
AILYN HAS REMOVED IV AND CPAP. HE STATES HE DOESN'T KNOW WHY HE DID IT. RT AT BEDSIDE TO ADJUST CPAP
--- NOTE | 2021-01-20 22:39 | NUR ---
SINDI BONILLA APRN CALLED ABOUT PATIENT'S BECOMING CONFUSED AND AGITATED. NEW ORDERS GIVEN FOR ABG TO BE DRAWN
--- NOTE | 2021-01-20 22:59 | NUR ---
UPDATED DAUGHTER ON PATIENT CONDITION. DAUGHTER STATES THAT HER FATHER HAS DEMENTIA AND TAKES MEDICATION FOR IT. DAUGHTER STATES STAFF WAS MADE AWARE OF PATIENT'S DEMENITA SEVERAL NIGHTS AGO.
--- NOTE | 2021-01-20 23:22 | NUR ---
UPDATED PROVIDER ABOUT THE PATIENT'S DAUGHTER INFORMING STAFF THAT HER FATHER HAS DEMENTIA
[2021-01-21] VITALS (23 sets, daily range): BP systolic 99–143; BP diastolic 47–76
--- NOTE | 2021-01-21 01:50 | NUR ---
PATIENT RESTING WITH EYES CLOSED. RESP EVEN WITH BIPAP IN PLACE.
--- NOTE | 2021-01-21 04:00 | NUR ---
PATIENT REQUESTING TO HAVE THE BIPAP REMOVED AND PLACED BACK ON 15 L HI-FLOW NC
--- NOTE | 2021-01-21 04:13 | NUR ---
NEW IV STARTED 20 R WRIST AND MORNING LABS DRAWN
[2021-01-21 05:41] LABS: HEMATOCRIT 48.1 % (39.0-50.0); HEMOGLOBIN 15.4 g/dl (14.0-18.0); IMMATURE GRANULOCYTES 1.4 % (0.0-5.0); MEAN CELL VOLUME 90.9 fL CALC (80.0-100.0); MEAN CORPUSCULAR HGB 29.1 pG CALC (26.0-32.0); NEUT# 3.37 thou/uL (1.82-7.42); RED BLOOD COUNT 5.29 mill/uL (4.70-6.10); RED CELL DISTRI WIDTH 13.2 % (11.5-15.5)
[2021-01-21 06:33] LABS: ANION GAP 6 (6-22 (CALC)); BUN 21 mg/dL (9-20); BUN/CREATININE RATIO 39 (12-20 (CALC)); CARBON DIOXIDE 37 mmol/l (22-30); CHLORIDE 98 mmol/l (95-108); CREATININE 0.6 mg/dL (0.7-1.3); GFR > 60 ML/MIN (>=60 (CALC)); GFR FOR AFR.AMER. > 60 ML/MIN (>=60 (CALC)); POTASSIUM 4.5 mmol/l (3.5-5.1); SODIUM 137 mmol/l (137-146)
--- NOTE | 2021-01-21 06:45 | NUR ---
REPORT RECEIVED FROM GRAPHITE DISK ASSEMBLER RN. CARE ASSUMED.
--- NOTE | 2021-01-21 07:00 | NUR ---
PATIENT RESTING IN BED WITH EYES CLOSED. O2 SATS 78%. PATIENT AROUSES TO VERBLA STIMULI. PLACED PATIENT BACK ON BIPAP AT THIS TIME DUE TO SLEEPING. PATIENT ALERT AND ORIENTED WITH SLIGHT CONFUSION UPON AWAKENING. SHIFT ASSESSEMNT COMPLETED AT THIS TIME. IV PATENT X1. CALL LIGHT IN REACH. WILL CONTINUE TO MONITOR.
--- NOTE | 2021-01-21 09:00 | NUR ---
DR MOON AT BEDSIDE AT THIS TIME. PLAN OF CARE DISCUSSED. NEW ORDERS RECEIVED.
--- NOTE | 2021-01-21 09:47 | NUR ---
Patient is know on AVAPS, rate 20, min. pressure 20, EPAP 10, VE 11.3, 100%, rise time 2, and TV 420.
--- NOTE | 2021-01-21 10:05 | NUR ---
DAUGHTER PHONED FOR UPDATE. CODE VERIFIED. UPDATE GIVEN.
[2021-01-21] MEDS ORDERED: WELLBUTRIN XL150 MG PO (10:09)
[2021-01-21] MEDS ORDERED: ALLOPURINOL300 MG PO (10:10)
[2021-01-21] MEDS ORDERED: NAMENDA10 MG PO (10:18)
[2021-01-21] MEDS ORDERED: ZOLPIDEM10 M1 PO (10:19)
[2021-01-21] MEDS ORDERED: DONEPEZIL HCL10 M1 PO (10:19)
[2021-01-21] MEDS ORDERED: FLOVENT HF110 MCG/AC (10:19)
[2021-01-21] MEDS ORDERED: PROAIR HFA IN (10:21)
[2021-01-21] MEDS ORDERED: FLUTICASON50 MCG/ACT (10:22)
--- NOTE | 2021-01-21 11:30 | NUR ---
PATIENT STATES THAT HE DOES NOT WANT LUNCH AT THIS TIME. PATIENT REMAINS ON BIPAP.
--- NOTE | 2021-01-21 13:39 | NUR ---
PATIENT RESTING IN BED ON BIPAP. RESP ARE EVEN AND UNLABORED. NO DISTRESS NOTED. CALL LIGHT IN REACH. WILL CONTINUE TO MONITOR.
--- NOTE | 2021-01-21 14:19 | NUR ---
SPOUSE CALLED FOR UPDATE. CODE VERIFIED. UPDATE GIVEN
--- NOTE | 2021-01-21 15:54 | NUR ---
PATIENT RESTING IN BED ON BIPAP. NO CHANGE IN ASSESSMENT VSS ON MONITOR. CALL LIGHT IN REACH. WILL CONTINUE TO MONITOR.
--- NOTE | 2021-01-21 15:57 | NUR ---
Patient on AVAPS 20/10 TV 420 100%. Minute ventilation 11.0 liters per/min.
--- NOTE | 2021-01-21 17:44 | NUR ---
PATIENT ASSISTED UP TO BEDSIDE RECLINER. PATIENT OFF OF BIPAP PLACED ON O2 4L NC SATS >92%. RESP ARE EVEN AND UNLABORED. NO DISTRESS NTOED.
--- NOTE | 2021-01-21 19:00 | NUR ---
RECEIVED REPORT FROM SARAY SONI.
--- NOTE | 2021-01-21 20:00 | NUR ---
PATIENT IS AWAKE, ALERT AND ORIENTED TO PERSON AND PLACE. DID NOT KNOW MONTH/DATE. PATIENT REPORTS BEING UPSET, STATING THAT THE DOCTOR DID NOT COME AND SEE HIM TODAY. HE WAS WONDERING WHAT HIS POC WAS. EXPLAINED THAT HE NEEDS TO GET WEANED DOWN OR OFF OXYGEN BEFORE BEING DISCHARGED. CONDITION ABT ORDERED. PATIENT VERBALIZED UNDERSTANDING. CURRENTLY SITTING UP IN CHAIR. RESPIRATIONS EVEN. O2 4L N/C IN PLACE AT THIS TIME. NO ACUTE DISTRESS OBSERVED. ASSESSMENT COMPLETED AND CHARTED. BED IN LOW POSITION. CALL LIGHT WITHIN REACH.
--- NOTE | 2021-01-21 21:30 | NUR ---
RT IN TO SEE PATIENT. PATIENT HAS BEEN PLACED ON AVAP, CURRENTLY SIDE LIEING. NO ACUTE DISTRESS OBSERVED. BED IN LOW POSITION. CALL LIGHT WITHIN REACH.
--- NOTE | 2021-01-21 22:40 | NUR ---
RESTING WITH EYES CLOSED. NO ACUTE DISTRESS.
[2021-01-22] VITALS (24 sets, daily range): BP systolic 103–155; BP diastolic 47–86
--- NOTE | 2021-01-22 00:34 | NUR ---
RT TO SEE PATIENT. OXYGEN WAS AT 100%, NOW DECREAED TO 80%. NO ACUTE DISTRESS. RESTING SIDELYING. NO ACUTE DISTRESS.
--- NOTE | 2021-01-22 02:09 | NUR ---
NO CHANGES TO PATIENT CONDITION. NO ACUTE DISTRESS OBSERVED.
--- NOTE | 2021-01-22 04:11 | NUR ---
PATIENT RESTING COMOFRABLY, NO DISTRESS NOTED. CALL LIGHT AND BEDSIDE TABLE WITHIN REACH.
--- NOTE | 2021-01-22 04:32 | NUR ---
PATIENT RESTING COMOFRABLY, NO DISTRESS NOTED. CALL LIGHT ND BEDSIDE TABLE WITHIN REACH.
[2021-01-22 06:18] LABS: ANION GAP 8 (6-22 (CALC)); BUN 19 mg/dL (9-20); BUN/CREATININE RATIO 39 (12-20 (CALC)); CARBON DIOXIDE 33 mmol/l (22-30); CHLORIDE 99 mmol/l (95-108); CREATININE 0.5 mg/dL (0.7-1.3); GFR > 60 ML/MIN (>=60 (CALC)); GFR FOR AFR.AMER. > 60 ML/MIN (>=60 (CALC)); POTASSIUM 4.7 mmol/l (3.5-5.1); SODIUM 134 mmol/l (137-146)
[2021-01-22 06:23] LABS: HEMATOCRIT 49.8 % (39.0-50.0); HEMOGLOBIN 15.9 g/dl (14.0-18.0); MEAN CELL VOLUME 90.5 fL CALC (80.0-100.0); MEAN CORPUSCULAR HGB 28.9 pG CALC (26.0-32.0); MEAN CORPUSCULAR HGB CONC 31.9 g/dL CAL (32.0-36.0); RED BLOOD COUNT 5.5 mill/uL (4.70-6.10); RED CELL DISTRI WIDTH 13.4 % (11.5-15.5)
--- NOTE | 2021-01-22 06:29 | NUR ---
PATIENT REQUESTING BREAKFAST AND IS READY TO GET UP AND EAT, INFORMED PATIENT BREAKFAST WOULD NOT BE HERE UNTIL LATER.
--- NOTE | 2021-01-22 07:08 | NUR ---
ASSUMED CARE OF PT, PT CURRENTLY ON AVAP MODE RESTING IN BED, NO S/S OF DISTRESS NOTED.
--- NOTE | 2021-01-22 07:22 | NUR ---
PT OFF BIPAP (avaps) AND ON 15l hfnc SAT IS 97%
--- NOTE | 2021-01-22 07:45 | NUR ---
PT UP TO CHAIR, EATING BREAKFAST, DENIES ANY OTHER NEEDS AT THIS TIME, NO S/S OF DISTRESS NOTED
[2021-01-22 09:01] LABS: SGOT/AST 52 u/l (17-59)
--- NOTE | 2021-01-22 09:43 | NUR ---
PT IS ON 15 HFNC SAT 96%
--- NOTE | 2021-01-22 11:15 | NUR ---
PT REQUESTED TO GO BACK TO BED, ASSISTED BACK TO BED BY VENETIAN BLIND CLEANER
--- NOTE | 2021-01-22 11:45 | NUR ---
LUNCH TRAY PROVIDED ON BEDISDE TABLE, PT SLEEPING AND DID NOT WANT TO SIT UP TO EAT.
--- NOTE | 2021-01-22 12:36 | NUR ---
ASSISTED PT TO BEDSIDE COMMODE FOR BM, THEN TO CHAIR TO EAT LUNCH. NO S/S OF DISTRESS NOTED, SPO2 LEVELS MAINTAINED ABOVE 90S DURING THESE ACTIVITIES
--- NOTE | 2021-01-22 13:45 | NUR ---
pt c nad vss in chair at bedside on hlfnc. nuclear auxiliary operator to monitor.
--- NOTE | 2021-01-22 13:48 | NUR ---
PT IS SITTING IN CHAIR ON 15L HFNC SAT 93%
--- NOTE | 2021-01-22 14:29 | NUR ---
PT STILL SITTING IN CHAIR, DENIES ANY NEES AT THIS TIME
--- NOTE | 2021-01-22 16:36 | NUR ---
pt is on 15l hfnc, in chair sat is 93%
--- NOTE | 2021-01-22 19:15 | NUR ---
SBAR RECEIVED FROM NAE GONZALEZ. PATIENT OOB TO CHAIR, TOLERATING WELL. CALL LIGHT WITHIN REACH.
--- NOTE | 2021-01-22 21:13 | NUR ---
PATIENT SWITCHED TO AVAP FOR NIGHT TIME USE AT 80%, SATURATION 99%; TOLERATING WELL.
[2021-01-23] VITALS (20 sets, daily range): BP systolic 84–127; BP diastolic 43–65
--- NOTE | 2021-01-23 00:28 | NUR ---
RESTING QUIETLY EYES CLOSED. NO DISTRESS NOTED. PATIENT ON AVAP, SATURATION 97%. BED IN LOW POSITION, LOCKED. CALL LIGHT WITHIN REACH.
--- NOTE | 2021-01-23 04:51 | NUR ---
PATIENT RESTING QUIETLY. NO DISTRESS NOTED. CALL LIGHT WITHIN REACH.
[2021-01-23 05:21] LABS: HEMATOCRIT 48.8 % (39.0-50.0); HEMOGLOBIN 15.8 g/dl (14.0-18.0); MEAN CELL VOLUME 90.5 fL CALC (80.0-100.0); MEAN CORPUSCULAR HGB 29.3 pG CALC (26.0-32.0); MEAN CORPUSCULAR HGB CONC 32.4 g/dL CAL (32.0-36.0); RED BLOOD COUNT 5.39 mill/uL (4.70-6.10); RED CELL DISTRI WIDTH 13.6 % (11.5-15.5)
[2021-01-23 05:36] LABS: ANION GAP 8 (6-22 (CALC)); BUN 18 mg/dL (9-20); BUN/CREATININE RATIO 37 (12-20 (CALC)); CARBON DIOXIDE 33 mmol/l (22-30); CHLORIDE 99 mmol/l (95-108); CREATININE 0.5 mg/dL (0.7-1.3); GFR > 60 ML/MIN (>=60 (CALC)); GFR FOR AFR.AMER. > 60 ML/MIN (>=60 (CALC)); MAGNESIUM 2.6 mg/dL (1.6-2.3); SODIUM 134 mmol/l (137-146)
--- NOTE | 2021-01-23 08:00 | NUR ---
PATIENT UP IN CHAIR AT THIS TIME ON 15L HIGH FLOW AT THIS TIME. RIVETER PORTABLE MACHINE DONE AT THIS TIME SEE INTERVENTIONS. PATIENT HAS COLLINS PLACED AND DRAINING CLEAR YELLOW URINE AT THIS TIME. BREATH SOUNDS ARE DIMINISHED AND SHALLOW AT THIS TIME SPO2 IS 92% PATIENT COMPLAINING THAT WHEN HE FEELS HE HAS TO URINATE IT HURTS. NOTED NON PITTING EDEMA NOTED ON HANDS AND ANKLES AND FEET. PATIENT STATED HE ALWAYS HAS THIS EDEMA. PATIENT EXHIBITS NO COUGHING AT THIS TIME. CALL LIGHT IS WITHIN REACH.
--- NOTE | 2021-01-23 10:15 | NUR ---
PATIENT SITTING UP IN CHAIR AT THIS TIME. 02 ON 15L HI-FLOW AT THIS TIME, SPO2 IS CURRENTLY 92%. PATIENT EDUCATED ON COLLINS CATH REMOVAL AT THIS TIME. COLLINS CATH REMOVED AND 250ML IN CATH BAG AT THIS TIME. ROZ-CARE GIVEN AFTER REMOVAL AND CLEAN URINAL GIVEN AND PATIENT ADVISED TO NOTIFY NURSE WHEN HE URINATES. CALL LIGHT IS WITHIN REACH AT THIS TIME.
--- NOTE | 2021-01-23 10:24 | NUR ---
pt on hfnc in chair at bedside. nad. work distributor to monitor.
--- NOTE | 2021-01-23 12:00 | NUR ---
PATIENT REMAINS UP IN CHAIR AT THIS TIME. PATIENT DENIES ANY PAIN AND OR NEEDS PATINET IS ON 15L HI-FLOW OXYGEN AND SPO2 CURRENTLY IS 96%. PATIENT WILL CONTINUE TO BE MONITORED.
--- NOTE | 2021-01-23 14:00 | NUR ---
PATIENT RESTING IN CHAIR AT THIS TIME. PATIENT DENIES ANY NEEDS PATIENT REMAINS ON 15L OF HI-FLOW OXYGEN AND SPO2 IS CURRENTLY 97%. PATIENT STATED THAT HIS IS PICKING UP FOR HIM TODAY A NEW SLEEP APENA MACHINE. THIS NURES INFORMED PATIENT TO HAVE BRING IT TO THE HOSPITAL AND HE COULD USE IT HERE WHEN THE TIME COMES.
--- NOTE | 2021-01-23 16:00 | NUR ---
PATIENT REMAINS UP IN CHAIR AT THIS TIME WITH 15L OF HI-FLOW OXYGEN AND SPO2 OF 95% AT THIS TIME. PATIENT DENIES ANY NEEDS AND OR PAIN AT THIS TIME. PATIENT DENIES ANY SHORTNESS OF BREATH CURRENTLY. PATIENTS SANDBLAST OR SHOTBLAST EQUIPMENT TENDER SHOWING SB AND HR OF 55 AND SPO2 OF 95% AT THIS TIME. CALL LIGHT AND PERSONAL ITEMS ARE WITHIN REACH. PATIENT CONTINUES TO VOID WITHOUT ISSUSES AT THIS TIME.
--- NOTE | 2021-01-23 18:05 | NUR ---
PATIENT REMAINS UP IN CHAIR AT THIS TIME. PATIENT SPO2 IS 95% ON 15L OF HI-FLOW. WARE FINISHER READING: SR AND HR OF 66. CALL LIGHT IS WITHIN REACH.
--- NOTE | 2021-01-23 19:20 | NUR ---
DANIEL RECEIVED FROM NAE PLASENCIA.
--- NOTE | 2021-01-23 20:09 | NUR ---
PATIENT ASSISTED FROM CHAIR TO BED WITH COMPUTER SCIENCE TEACHER. TOLERATED WELL. PATIENT IN SIDELYING POSITION TOLERATING WELL, SATURATION 94%. CALL LIGHT WITHIN REACH INSTRUCTED TO CALL FOR ASSISTANCE.
[2021-01-24] VITALS (22 sets, daily range): BP systolic 82–119; BP diastolic 40–83
--- NOTE | 2021-01-24 00:39 | NUR ---
RESTING QUIETLY. NO DISTRESS NOTED. CALL LIGHT WITHIN REACH.
--- NOTE | 2021-01-24 03:15 | NUR ---
PATIENT REQUEST ASSISTANCE TO BEDSIDE COMMODE. TRANSFER WITH MINIMAL ASSIST, TOLERATED WELL. OXYGEN SATURATION REMAINED ABOVE 90% DURING TRANSFER, PATIENT DID NOT DISPLAY ANY SIGNS OF DISTRESS. EMPTIED 450ML CLEAR MOISES URINE FROM URINAL. PATIENT PROVIDED PRIVACY, CALL LIGHT WITHIN REACH TO REQUEST ASSISTANCE FROM COMMODE.
[2021-01-24 04:33] LABS: HEMATOCRIT 50.4 % (39.0-50.0); HEMOGLOBIN 15.9 g/dl (14.0-18.0); IMMATURE GRANULOCYTES 1.8 % (0.0-5.0); MEAN CELL VOLUME 92.1 fL CALC (80.0-100.0); MEAN CORPUSCULAR HGB 29.1 pG CALC (26.0-32.0); MEAN CORPUSCULAR HGB CONC 31.5 g/dL CAL (32.0-36.0); NEUT# 4.25 thou/uL (1.82-7.42); RED BLOOD COUNT 5.47 mill/uL (4.70-6.10); RED CELL DISTRI WIDTH 13.6 % (11.5-15.5)
[2021-01-24 05:00] LABS: ALBUMIN 3.1 g/dL (3.2-5.0); ALKALINE PHOSPHATASE 68 u/l (38-126); ANION GAP 11 (6-22 (CALC)); BILIRUBIN, TOTAL 0.7 mg/dL (0.0-1.4); BUN 19 mg/dL (9-20); BUN/CREATININE RATIO 38 (12-20 (CALC)); C-REACTIVE PROTEIN < 0.5 mg/dL (0-0.9); CARBON DIOXIDE 32 mmol/l (22-30); CHLORIDE 97 mmol/l (95-108); CREATININE 0.5 mg/dL (0.7-1.3); GFR > 60 ML/MIN (>=60 (CALC)); GFR FOR AFR.AMER. > 60 ML/MIN (>=60 (CALC)); POTASSIUM 5.3 mmol/l (3.5-5.1); SGOT/AST 43 u/l (17-59); SODIUM 135 mmol/l (137-146); TOTAL PROTEIN 5.8 g/dL (6.3-8.2)
--- NOTE | 2021-01-24 07:15 | NUR ---
pt awake in bed; no apparent distress noted; pt offers no complaints; assessment completed at this time; pt alert and oriented; denies pain; no n/v noted; resp even and unlabored; lungs clear/ diminished bases; skin color wnl; o2 per nc at 15L high flow; no cough noted; hr reg; weak pedal pulses; 2+ edema noted to ble; sr-sb on monitor; abd soft with bs present; no bm noted per caption writer/ pt admits to bp this am; pt admits to voiding without complication; no urine to inspect at this time; urinal at bedside; #20 intact to rh; no redness or edema noted at site; plan of care/ am meds explained; pt assisted to recliner at this time; pt tolerated activity well; call light within reach; will continue to monitor
--- NOTE | 2021-01-24 08:00 | NUR ---
awake in recliner; offers no complaints; iv intact; sr on monitor; call light within reach; will continue to monitor
--- NOTE | 2021-01-24 08:39 | NUR ---
pt in chair at bedside on hfnc. adilia. karthik. rn c pt at this time. gold assayer to monitor.
--- NOTE | 2021-01-24 09:00 | NUR ---
#22 started in rh x2 attempts; iv flushed and patent; will continue to monitor
--- NOTE | 2021-01-24 09:31 | NUR ---
Dr Johnson present at bedside to assess pt and discuss plan of care
--- NOTE | 2021-01-24 10:20 | NUR ---
awake in recliner; no apparent distress noted; iv intact; sr on monitor; call light within reach; will continue to monitor
--- NOTE | 2021-01-24 11:09 | NUR ---
npo chnages at this time. nad.vss. kitchen lead to monitor.
--- NOTE | 2021-01-24 12:15 | NUR ---
awake in recliner; no apparent distress noted; pt offers no complaints; iv intact; sr on monitor; o2 per nc; call light within reach; will continue to monitor
--- NOTE | 2021-01-24 14:00 | NUR ---
awake in recliner; offers no complaints; iv intact; sr on monitor; o2 per nc at 15L; call light within reach; will continue to monitor
--- NOTE | 2021-01-24 16:10 | NUR ---
awake in recliner; offers no complaints; iv intact and patent; sr on monitor; o2 per high flow at 15L; deny needs; call light within reach; will continue to monitor
--- NOTE | 2021-01-24 18:02 | NUR ---
awake in recliner; no apparent distress noted; pt offers no complaints; iv intact; sr on monitor; o2 per nc; call light within reach
--- NOTE | 2021-01-24 19:13 | NUR ---
REPORT GIVEN BY MIRNA. PATIENT IS ALERT AND ORIENTED SITTING UP IN THE BEDSIDE RECLINER. RESP EVEN AND UNLABORED, 15L VIA HI-FLOW NC. NO S/S OF DISTRESS NOTED. FALL AND SAFTEY PRECAUTIONS IN PLACE. IV SALINE LOCKED. SB ON TELE. PLAN OF CARE DISCUSSED. PATIENT INFORMED TO CALL WITH ANY QUESTIONS OR CONCERNS.
--- NOTE | 2021-01-24 21:37 | NUR ---
PM MEDICATION GIVEN. XANAX REQUESTED.
[2021-01-25] VITALS (21 sets, daily range): BP systolic 87–123; BP diastolic 49–72
--- NOTE | 2021-01-25 | NUR ---
PATIENT RESTING WITH EYES CLOSED. RESP EVEN AND UNLABORED. NO S/S OF DISTRESS NOTED. FALL AND SAFTEY PRECAUTIONS IN PLACE.
--- NOTE | 2021-01-25 | NUR ---
PATIENT ASLEEP. VITALS ARE STABLE AND RECOREDED. NO STATUS CHANGE. DAUGHTER CALLED REQUESTING A CALL ONCE FATHER IS TRANSFFERED TO MED SURG
--- NOTE | 2021-01-25 02:17 | NUR ---
PATIENT RESTING WITH EYES CLOSED. RESP EVEN AND UNLABORED. NO S/S OF DISTRESS NOTED.
--- NOTE | 2021-01-25 05:14 | NUR ---
LAB AT BEDSIDE
[2021-01-25 06:14] LABS: HEMATOCRIT 49.8 % (39.0-50.0); HEMOGLOBIN 15.7 g/dl (14.0-18.0); MEAN CELL VOLUME 92.7 fL CALC (80.0-100.0); MEAN CORPUSCULAR HGB 29.2 pG CALC (26.0-32.0); MEAN CORPUSCULAR HGB CONC 31.5 g/dL CAL (32.0-36.0); RED BLOOD COUNT 5.37 mill/uL (4.70-6.10); RED CELL DISTRI WIDTH 13.6 % (11.5-15.5)
--- NOTE | 2021-01-25 06:19 | NUR ---
PATIENT RESTING WITH EYES CLOSED. RESP EVEN AND UNLABORED. NO S/S OF DISTRESS NOTED. FALL AND SAFTEY PRECAUTIONS IN PLACE.
[2021-01-25 06:21] LABS: ANION GAP 9 (6-22 (CALC)); BUN 20 mg/dL (9-20); BUN/CREATININE RATIO 40 (12-20 (CALC)); CARBON DIOXIDE 35 mmol/l (22-30); CHLORIDE 96 mmol/l (95-108); CREATININE 0.5 mg/dL (0.7-1.3); GFR > 60 ML/MIN (>=60 (CALC)); GFR FOR AFR.AMER. > 60 ML/MIN (>=60 (CALC)); MAGNESIUM 2.4 mg/dL (1.6-2.3); POTASSIUM 4.9 mmol/l (3.5-5.1); SODIUM 134 mmol/l (137-146)
--- NOTE | 2021-01-25 06:50 | NUR ---
report received from Jacqui Person RN
--- NOTE | 2021-01-25 07:40 | NUR ---
pt awake in bed; no apparent distress noted; pt offers no complaints; assessment completed at this time; pt alert and oriented; denies pain; no n/v noted; resp even and unlabored; lungs clear/ diminished; skin color wnl; o2 per high flow nc at 15L; o2 sat 96%; o2 titrated to 12L; manpower development specialist manager cough noted; hr reg; strong pulses; trace edema noted to ble; sb on monitor; abd soft with bs present; no bm noted per writer producer; pt voiding clear yellow urine without complication; urinal at bedside; #22 saline locked to rh; no redness or edema noted at site; plan of care/ am meds explained; pt declined recliner at this time; call light within reach; will continue to monitor
--- NOTE | 2021-01-25 08:00 | NUR ---
RN WEANED LPM ON HFNC FROM 15 TO 12. PT TO LWELL AT HTIS TIME. WILL WEAN ACCORDINGLY TODAY. BOILER INSPECTOR TO MONITOR.
--- NOTE | 2021-01-25 08:08 | NUR ---
pt awake sitting on the side of the bed eating breakfast; no apparent distress noted; pt offers no complaints; call light within reach; will continue to monitor
--- NOTE | 2021-01-25 08:57 | NUR ---
Dr Johnson present at bedside to assess pt and discuss plan of care
--- NOTE | 2021-01-25 09:35 | NUR ---
o2 sat 96%; o2 titrated to 10L
--- NOTE | 2021-01-25 10:05 | NUR ---
resting in bed with eyes closed; no apparent distress noted; iv intact; sb on monitor; o2 per nc; call light within reach; will continue to monitor
--- NOTE | 2021-01-25 11:45 | NUR ---
assisted to recliner for lunch
--- NOTE | 2021-01-25 12:20 | NUR ---
awake in recliner; offers no complaints; iv intact; o2 per nc at 10L; call light within reach; will continue to monitor
--- NOTE | 2021-01-25 14:00 | NUR ---
awake in recliner; offers no complaints; o2 per nc; sr on monitor; will continue to monitor
--- NOTE | 2021-01-25 16:03 | NUR ---
awake in recliner bathing self; iv intact and patent; o2 per nc; call light within reach; will continue to monitor
--- NOTE | 2021-01-25 17:58 | NUR ---
AWAKE IN RECLINER EATING DINNER; NO APPARENT DISTRESS NOTED; O2 PER NC; IV INTACT; SR ON MONITOR; WILL CONTINUE TO MONITOR
--- NOTE | 2021-01-25 20:00 | NUR ---
PATIENT SEATED IN BEDSIDE CHAIR. VITALS AND ASSESSMEN TAKEN AND RECOREDED. PATIENT HAD OUTPUT OF URINE
[2021-01-26] VITALS (21 sets, daily range): BP systolic 78–151; BP diastolic 45–74
--- NOTE | 2021-01-26 04:28 | NUR ---
PATIENT SLEEPING SOUNDLY. VITALS COLLECTED AND RECORED. NO CHANGE IN CONDITION OVER NIGHT
[2021-01-26 06:09] LABS: HEMATOCRIT 48.8 % (39.0-50.0); HEMOGLOBIN 15.5 g/dl (14.0-18.0); IMMATURE GRANULOCYTES 0.6 % (0.0-5.0); MEAN CELL VOLUME 91.9 fL CALC (80.0-100.0); MEAN CORPUSCULAR HGB 29.2 pG CALC (26.0-32.0); MEAN CORPUSCULAR HGB CONC 31.8 g/dL CAL (32.0-36.0); NEUT# 4.71 thou/uL (1.82-7.42); RED BLOOD COUNT 5.31 mill/uL (4.70-6.10); RED CELL DISTRI WIDTH 13.4 % (11.5-15.5)
[2021-01-26 06:37] LABS: ALBUMIN 2.9 g/dL (3.2-5.0); ALKALINE PHOSPHATASE 70 u/l (38-126); ANION GAP 6 (6-22 (CALC)); BILIRUBIN, TOTAL 0.5 mg/dL (0.0-1.4); BUN 21 mg/dL (9-20); BUN/CREATININE RATIO 37 (12-20 (CALC)); C-REACTIVE PROTEIN < 0.5 mg/dL (0-0.9); CARBON DIOXIDE 37 mmol/l (22-30); CHLORIDE 96 mmol/l (95-108); CREATININE 0.6 mg/dL (0.7-1.3); GFR > 60 ML/MIN (>=60 (CALC)); GFR FOR AFR.AMER. > 60 ML/MIN (>=60 (CALC)); POTASSIUM 4.6 mmol/l (3.5-5.1); SGOT/AST 32 u/l (17-59); SODIUM 134 mmol/l (137-146); TOTAL PROTEIN 5.5 g/dL (6.3-8.2)
--- NOTE | 2021-01-26 07:00 | NUR ---
REPORT RECEIVED FROM KAPILRN
--- NOTE | 2021-01-26 08:30 | NUR ---
PT RESTING IN SEMI FOWLERS POSITION,A&O X3;VS OBTAINED AND ASSESSMENT COMPLETED;PT DENIES ANY CURRENT PAIN OR DISCOMFORTS,PAIN SCALE AND REPORTING EDUCATED;RESPIRATIONS EVEN AND UNLABORED ON O2 @ 7L HF NC WITH O2 SATS 95%, OXYGEN TITRATED TO 5L HF NC AT THIS TIME;CLEAR/DIMINISHED LUNG SOUNDS WITH NON-PRODUCTIVE COUGH;ABDOMEN DISTENDED/SOFT ON PALPATION AND ACTIVE IN ALL 4 QUADRANTS;WEAK PEDAL PULSES;SKIN INTACT;CARDIAC MONITORING IN PLACE;#22G TO RH FLUSHED AND PATENT;PT REMAINS IN AIR/CONTACT PRECAUTIONS DUE TO COVID19 DX;PT ENCOURAGED TO CALL FOR ASSISTANCE IF NEEDED;FALL PRECAUTIONS IN PLACE WITH BED IN THE LOWEST POSITION AND CALL LIGHT IN REACH;WILL CONTINUE TO MONITOR
--- NOTE | 2021-01-26 09:32 | NUR ---
AT BEDSIDE DISCUSSING POC.
--- NOTE | 2021-01-26 10:40 | NUR ---
PATIENT BATHED SELF AND LINENS CHANGED AT THIS TIME;PT O2 SATS 96% ON O2 @ 5L HF NC, OXYGEN TITRATED TO 3L AT THIS TIME,WILL CONTINUE TO MONITOR
--- NOTE | 2021-01-26 11:00 | NUR ---
PT OOB RESTING IN RECLINER;RESPIRATIONS EVEN AND UNLABORED ON O2 @ 3L VIA NC, O2 SATS 95% AT THIS TIME;PT DENIES ANY CURRENT PAIN OR DISCOMFORTS;CARDIAC MONITORING IN PLACE;IV SITE REMAINS PATENT;PT DENIES ANY ADDITIONAL NEEDS AND IS ENCOURAGED TO CALL FOR ASSISTANCE IF NEEDED;CALL LIGHT IN REACH;WILL CONTINUE TO MONITOR
--- NOTE | 2021-01-26 12:43 | NUR ---
O2 SAT ON 3L 93%
--- NOTE | 2021-01-26 13:00 | NUR ---
PT OOB RESTING IN RECLINER;RESPIRATIONS EVEN AND UNLABORED ON O2 @ 3L VIA NC, O2 SATS 95% AND OXYGEN TITRATED TO 2L AT THIS TIME;PT DENIES ANY CURRENT PAIN OR DISCOMFORTS;CARDIAC MONITORING IN PLACE;IV SITE PATENT;PT ENCOURAGED TO CALL FOR ASSISTANCE IF NEEDED;CALL LIGHT IN REACH;WILL CONTINUE TO MONITOR
--- NOTE | 2021-01-26 15:00 | NUR ---
PT REMAINS OOB RESTING IN RECLINER WATCHING TV;RESPIRATIONS EVEN AND UNLABORED ON O2 @ 2L VIA NC;PT DENIES ANY CURRENT PAIN OR DISCOMFORTS AT THIS TIME;CARDIAC MONITORING IN PLACE;IV SITE PATENT TO ;PT DENIES ANY ADDITIONAL NEEDS AND IS ENCOURAGED TO CALL FOR ASSISTANCE IF NEEDED;FALL PRECAUTIONS REMAIN IN PLACE WITH CALL LIGHT IN REACH;WILL CONTINUE TO MONITOR
--- NOTE | 2021-01-26 17:00 | NUR ---
PT OOB RESTING IN RECLINER;RESPIRATIONS EVEN AND UNLABORED ON O2 @ 2L VIA NC;PT DENIES ANY CURRENT PAIN OR NEEDS;CARDIAC MONITORING IN PLACE;IV SITE PATENT;PT DENIES ANY ADDITIONAL NEEDS;ENCOURAGED TO CALL FOR ASSISTANCE IF NEEDED;CALL LIGHT IN REACH;WILL CONTINUE TO MONITOR
--- NOTE | 2021-01-26 19:00 | NUR ---
RECEIVED REPORT FROM NURSE NATH, ASSUMED PATIENT CARE.
--- NOTE | 2021-01-26 20:00 | NUR ---
PATIENT SITTING IN CHAIR CURRENTLY WATCHING TV, ALERT ORIENTED X 3, RESPOND SLOW, DENIES PAIN OR DISCOMFORTS, STILL WITH OCCASIONAL NON PRODUCTIVE COUGH, LUNG SOUNDS CLEAR/DIMINISHED, REMAINS ON O2 @ 2LPM VIA NC, BREATHING EVEN UNLABORED, WITH SALINE LOCK ON RT HAND G 22 PATENT FLUSHES WELL, ACTIVE BOWEL SOUNDS, TRACE OF EDEMA NOTED ON BILAT LOWER EXTREMITIES, PATIENT ASSISTED BACK IN BED, CURRENTLY RESTING LEFT SIDE LYING POSITION CALL LIGHT AT REACH.
--- NOTE | 2021-01-26 22:30 | NUR ---
PATIENT CALLED, AND REQUESTED TO EMPTY URINAL, PATIENT RESTING IN BED, WATCHING TV NOT IN DISTRESS CALL LIGHT AT REACH.
--- NOTE | 2021-01-26 23:44 | NUR ---
PATIENT RESTLESS, C/O BEING UNABLE TO REST, PRN XANAX GIVEN.PATIENT REMAINS ON O2 @ 2LPM NOT IN DISTRESS, CALL LIGHT AT REACH.
[2021-01-27] VITALS (24 sets, daily range): BP systolic 81–131; BP diastolic 51–83
--- NOTE | 2021-01-27 02:00 | NUR ---
PATIENT RESTING IN BED WITH EYES CLOSED, NOT IN DISTRESS CALL LIGHT AT REACH.
--- NOTE | 2021-01-27 04:43 | NUR ---
TECH IN ROOM FOR BLOOD DRAW, PATIENT RESTING IN BED, BREATHING UNLABORED, CALL LIGHT AT REACH.
[2021-01-27 05:40] LABS: HEMATOCRIT 51.2 % (39.0-50.0); HEMOGLOBIN 16.3 g/dl (14.0-18.0); MEAN CELL VOLUME 91.4 fL CALC (80.0-100.0); MEAN CORPUSCULAR HGB 29.1 pG CALC (26.0-32.0); MEAN CORPUSCULAR HGB CONC 31.8 g/dL CAL (32.0-36.0); RED BLOOD COUNT 5.6 mill/uL (4.70-6.10); RED CELL DISTRI WIDTH 13.3 % (11.5-15.5)
[2021-01-27 05:59] LABS: ANION GAP 8 (6-22 (CALC)); BUN 18 mg/dL (9-20); BUN/CREATININE RATIO 35 (12-20 (CALC)); CARBON DIOXIDE 35 mmol/l (22-30); CHLORIDE 97 mmol/l (95-108); CREATININE 0.5 mg/dL (0.7-1.3); GFR > 60 ML/MIN (>=60 (CALC)); GFR FOR AFR.AMER. > 60 ML/MIN (>=60 (CALC)); MAGNESIUM 2.3 mg/dL (1.6-2.3); POTASSIUM 4.5 mmol/l (3.5-5.1); SODIUM 136 mmol/l (137-146)
--- NOTE | 2021-01-27 06:00 | NUR ---
PATIENT RESTING IN BED EYES CLOSED, BREATHING UNLABORED, CALL LIGHT AT REACH.
--- NOTE | 2021-01-27 06:55 | NUR ---
REPORT RECEIVED FROM NAE CHAVEZ
--- NOTE | 2021-01-27 07:30 | NUR ---
PT RESTING IN SEMI FOWLERS POSITION,A&O X3;VS OBTAINED AND ASSESSMENT COMPLETED;PT DENIES ANY CURRENT PAIN OR DISCOMFORTS,PAIN SCALE AND REPORTING EDUCATED;RESPIRATIONS EVEN AND UNLABORED ON O2 @ 2L VIA NC,CLEAR/DIMINISHED LUNG SOUNDS NOTED;ABDOMEN DISTENDED/SOFT ON PALPATION AND ACTIVE IN ALL 4 QUADRANTS;WEAK PEDAL PULSES;SKIN INTACT;CARDIAC MONITORING IN PLACE;#22G TO RH FLUSHED AND PATENT,SITE APPEARS HEALTHY;PT REMAINS IN AIR/CONTACT PRECAUTIONS DUE TO COVID19;PT DENIES ANY ADDITIONAL NEEDS AND IS ENCOURAGED TO CALL FOR ASSISTANCE IF NEEDED;FALL PRECAUTIONS IN PLACE WITH BED IN THE LOWEST POSITION AND CALL LIGHT IN REACH;WILL CONTINUE TO MONITOR
--- NOTE | 2021-01-27 07:45 | NUR ---
PT APPEARS TO BE IN AFIB RVR ON CARDIAC MONITORING.ASYMPTOMATIC AT THIS TIME. NOTIFIED AND NEW ORDERS RECEIVED;WILL CONTINUE TO MONITOR
--- NOTE | 2021-01-27 08:50 | NUR ---
AT BEDSIDE DISCUSSING POC WITH PT.
--- NOTE | 2021-01-27 08:53 | NUR ---
RT AT BEDSIDE OBTAINING EKG.
--- NOTE | 2021-01-27 11:00 | NUR ---
PT RESTING IN SEMI FOWLERS POSITION;RESPIRATIONS EVEN AND UNLABORED ON O2 @ 2L VIA NC;PT DENIES ANY CURRENT PAIN OR DISCOMFORTS;CARDIAC MONITORING IN PLACE;IV SITE PATENT INFUSING BOLUS PER ORDER;PT ENCOURAGED TO CALL FOR ASSISTANCE IF NEEDED;CALL LIGHT IN REACH;WILL CONTINUE TO MONITOR
--- NOTE | 2021-01-27 11:27 | NUR ---
PT note- patient once again screened for PT intervention and may benefit if medical agrees
--- NOTE | 2021-01-27 12:14 | NUR ---
AT BEDSIDE DISCUSSING POC.
--- NOTE | 2021-01-27 13:00 | NUR ---
PT OOB RESTING IN RECLINER;RESPIRATIONS EVEN AND UNLABORED ON O2 @ 2L VIA NC;PT DENIES ANY CURRENT PAIN OR DISCOMFORTS;CARDIAC MONITORING IN PLACE RUNNING AFIB 100'S;IV SITE PATENT;PT DENIES ANY ADDITIONAL NEEDS AND IS ENCOURAGED TO CALL FOR ASSISTANCE IF NEEDED;CALL LIGHT IN REACH;WILL CONTINUE TO MONITOR
--- NOTE | 2021-01-27 15:00 | NUR ---
PT OOB RESTING IN RECLINER WATCHING TV;RESPIRATIONS EVEN AND UNLABORED ON O2 @ 2L VIA NC;PT DENIES ANY CURRENT PAIN OR NEEDS;CARDIAC MONITORING IN PLACE;IV SITE PATENT;PT ENCOURAGED TO CALL FOR ASSISTANCE IF NEEDED;FALL PRECAUTIONS REMAIN IN PLACE WITH CALL LIGHT IN REACH;WILL CONTINUE TO MONITOR
--- NOTE | 2021-01-27 17:00 | NUR ---
PT REMAINS OOB RESTING IN RECLINER;RESPIRATIONS EVEN AND UNLABORED ON O2 @ 2L VIA NC;PT DENIES ANY CURRENT PAIN OR DISCOMFORTS;CARDIAC MONITORING IN PLACE;IV SITE PATENT;URINAL EMPTIED OF 400CC OF CLEAR/YELLOW URINE;PT ENCOURAGED TO CALL FOR ASSISTANCE IF NEEDED;CALL LIGHT IN REACH;WILL CONTINUE TO MONITOR
--- NOTE | 2021-01-27 20:48 | NUR ---
LATE ENTRY FOR 1900. SBAR REPORT RECEIVED FROM PORTILLO MCDOWELL. PATIENT OOB TO CHAIR WATCHING TV, TOLERATING WELL. DENIES PAIN AT THIS TIME, NO DISTRESS NOTED. CALL LIGHT WITHIN REACH.
[2021-01-28] VITALS (24 sets, daily range): BP systolic 82–150; BP diastolic 53–87
--- NOTE | 2021-01-28 00:41 | NUR ---
RESTING QUIELTY. LYING IN LEFT LATERAL RECUMBENT POSITION, SATURATION 95-98%. NO DISTRESS NOTED. CALL LIGHT WITHIN REACH.
--- NOTE | 2021-01-28 04:42 | NUR ---
RESTING QUIETLY EYES CLOSED. NO DISTRESS NOTED. SATURATION 95% ON 2L/NC. CALL LIGHT WITHIN REACH.
[2021-01-28 05:50] LABS: HEMATOCRIT 52.3 % (39.0-50.0); HEMOGLOBIN 16.4 g/dl (14.0-18.0); IMMATURE GRANULOCYTES 0.3 % (0.0-5.0); MEAN CELL VOLUME 92.1 fL CALC (80.0-100.0); MEAN CORPUSCULAR HGB 28.9 pG CALC (26.0-32.0); MEAN CORPUSCULAR HGB CONC 31.4 g/dL CAL (32.0-36.0); NEUT# 8.23 thou/uL (1.82-7.42); RED BLOOD COUNT 5.68 mill/uL (4.70-6.10); RED CELL DISTRI WIDTH 13.6 % (11.5-15.5)
[2021-01-28 06:17] LABS: ALKALINE PHOSPHATASE 73 u/l (38-126); ANION GAP 8 (6-22 (CALC)); BUN 21 mg/dL (9-20); BUN/CREATININE RATIO 40 (12-20 (CALC)); C-REACTIVE PROTEIN 0.5 mg/dL (0-0.9); CARBON DIOXIDE 31 mmol/l (22-30); CHLORIDE 101 mmol/l (95-108); CREATININE 0.5 mg/dL (0.7-1.3); GFR > 60 ML/MIN (>=60 (CALC)); GFR FOR AFR.AMER. > 60 ML/MIN (>=60 (CALC)); MAGNESIUM 2.2 mg/dL (1.6-2.3); POTASSIUM 4.8 mmol/l (3.5-5.1); SGOT/AST 49 u/l (17-59); SODIUM 135 mmol/l (137-146); TOTAL PROTEIN 5.5 g/dL (6.3-8.2)
[2021-01-28 06:31] LABS: BILIRUBIN, TOTAL 0.9 mg/dL (0.0-1.4)
--- NOTE | 2021-01-28 08:00 | NUR ---
PATIENT IN BED ALERT AND ORIENTED BULLION WEIGHER KAILA AT THIS TIME. PATIENT LUNG FILEDS ARE CLEAR IN UPPER XIONG AND DIMINISHED IN MIDDLE AND LOWER XIONG AT THIS TIME. PATIENT IN CURRRENTLY ON 2L OF OXYGEN NASAL CANNULA AT THIS TIME AND SPO2 CURRENTLY IS 98%. SIZE CHANGER SHOWING HR IS AFIB AND RUNNING AT 94. PATIENT EXHIBITS NO COUGHING AT THIS TIME. PATIENT DENIES ANY PAIN WELL AT THIS TIME SIDERAILS ARE UP CALL LIGHT IS WITHIN REACH.
--- NOTE | 2021-01-28 09:25 | NUR ---
PATIENT GIVING EDUCATION ON CARDIZEM P.0. MEDICATION. PATIENT VERBALIZES UNDERSTANDING OF OF MEDICATION AND SIDE EFFECTS. WILL CONTINUE TO MONITOR.
--- NOTE | 2021-01-28 10:00 | NUR ---
PATIENT REMAINS UP IN CHAIR AT THIS TIME. 02 IS ON 2L AND SPO2 IS 95%. PATIENT BP IS CURRENTLY 107/22. CALL LIGHT WITHIN REACH WILL CONTINUE TO MONITOR.
--- NOTE | 2021-01-28 10:46 | NUR ---
pt c nad. vss. on 2l nc
--- NOTE | 2021-01-28 12:20 | NUR ---
no changes at this time. nad. vss. supervisor cleaning and annealing to monitor,
--- NOTE | 2021-01-28 12:31 | NUR ---
PATIENT SITTING UP IN CHAIR AT THIS TIME DENEIS ANY PAIN. PECAN PICKER SHOWING A-FIB AND HR AT 104 AND BP IS 93/69 AT THIS TIME. PATIENT DENIES ANY PAIN OR NEEDS CALL LIGHT IS WITHIN REACH.
--- NOTE | 2021-01-28 12:56 | NUR ---
PATIENT GIVEN 30MG OF CARDIZEM AT THIS TIME. BP IS CURRENTLY 107/76 WILL CONTINUE TO MONITOR.
--- NOTE | 2021-01-28 13:33 | NUR ---
PATIENT BP AT THIS TIME IS 120/75. PATIENT REMAINS UP IN CHAIR HR IS CURRENT 102 AFIB. AND PATIENT DENEIS ANY NEEDS. DR. BLANCO NOTIFIED OF PATIENT CONDITION FOR POSSIBLE TRANSFER TO MED SURG FLOOR.
--- NOTE | 2021-01-28 14:00 | NUR ---
PATIENT REMAINS UP IN CHAIR ON 2L N/C AT THIS TIME. PATIENT BP IS CURRENTLY 120/55 AND LIBRARY TECHNICAL ASSISTANT READING A-FIB AT 106. PATIENT DEINES ANY NEEDS CURRENTLY CALL LIGHT IS WITHIN REACH.
--- NOTE | 2021-01-28 16:00 | NUR ---
PATIENT SITTING UP IN CHAIR AT THIS TIME. PATIENT DENIES ANY NEEDS AT THIS TIME PATIENT HAND BULLDOZER READING AT THIS TIME A-FIB/HR AT 96 AND SPO2 IS 121/83 PATIENT DENIES ANY SHORTNESS OF BREATH OR PAIN OR ANY NEEDS AT THIS TIME. CALL LIGHT WTIHIN REACH.
--- NOTE | 2021-01-28 17:57 | NUR ---
PATIENT SITTING UP AT BEDSIDE EATING DINNER AT THIS TIME. PATIENT REMAINS ON 2L NASAL CANNULA AT THIS TIME AND SPO2 IS 95%. EDUCATION TEACHER READING A-FIB IS 102 AT THIS TIME. CALL LIGHT IS WITHIN REACH AT THIS TIME.
--- NOTE | 2021-01-28 19:20 | NUR ---
SBAR RECEIVED FROM LUIS ANGEL SONI. PATIENT OOB TO CHAIR TOLERATION WELL. NO DISTRESS NOTED, 2L/NC SATURATION 90%. DENIES PAIN AT THIS TIME CALL LIGHT WITHIN REACH.
[2021-01-29] VITALS (15 sets, daily range): BP systolic 92–124; BP diastolic 50–76
--- NOTE | 2021-01-29 00:55 | NUR ---
RESTING QUIETLY EYES CLOSED. NO DISTRESS NOTED. CALL LIGHT WITHIN REACH.
--- NOTE | 2021-01-29 04:50 | NUR ---
RESTING QUIETLY. NO DISTRESS NOTED. CALL LIGHT WITHIN REACH.
[2021-01-29 05:50] LABS: HEMATOCRIT 51.9 % (39.0-50.0); HEMOGLOBIN 16.6 g/dl (14.0-18.0); IMMATURE GRANULOCYTES 0.4 % (0.0-5.0); MEAN CELL VOLUME 90.9 fL CALC (80.0-100.0); MEAN CORPUSCULAR HGB 29.1 pG CALC (26.0-32.0); NEUT# 9.9 thou/uL (1.82-7.42); RED BLOOD COUNT 5.71 mill/uL (4.70-6.10); RED CELL DISTRI WIDTH 13.6 % (11.5-15.5)
[2021-01-29 05:58] LABS: ANION GAP 8 (6-22 (CALC)); BUN 19 mg/dL (9-20); BUN/CREATININE RATIO 37 (12-20 (CALC)); CARBON DIOXIDE 31 mmol/l (22-30); CHLORIDE 100 mmol/l (95-108); CREATININE 0.5 mg/dL (0.7-1.3); GFR > 60 ML/MIN (>=60 (CALC)); GFR FOR AFR.AMER. > 60 ML/MIN (>=60 (CALC)); MAGNESIUM 2.3 mg/dL (1.6-2.3); POTASSIUM 4.7 mmol/l (3.5-5.1); SODIUM 134 mmol/l (137-146)
--- NOTE | 2021-01-29 08:00 | NUR ---
PATIENT IS A/O X3, ABLE TO MAKE NEEDS KNOWN TO STAFF. DENIES PAIN AT THIS TIME. SITTING UP IN THE CHAIR EATING BREAKFAST WATCHING TV. 3MM PERRLA BRISK. CLEAR TO DIMINISHED LUNG SOUNDS. VITALS ARE STABLE. EQUAL AND STRONG HANG PUPIL PERSONNEL WORKER. ACTIVE BOWEL SOUNDS. SOFT NON TENDER, OBESE ABDOMEN. NO EDEMA PRESENT AT THIS TIME. STRONG PULSES. NO ARM OR LEG DRIFT. 2L NC O2, O2 SATS ABOVE 97%. HEART RATE IS STILL RUNNING AFIB. WILL SPEAK TO DOCTOR ABOUT IT. SAFETY MEASURES I NPLACE. CALL LIGHT IN REACH. WILL COTNINUE TO MONITOR PER HOSPITAL'S POLICY.
--- NOTE | 2021-01-29 10:00 | NUR ---
PATIENT STATED THAT HE DIDNT NEED HIS BED CHANGED THEY CHANGED IT OUT YESTERDAY AFTERNOON. REQUESTED TO BE SET UP FOR A BATH AFTER LUNCH.
--- NOTE | 2021-01-29 12:00 | NUR ---
PATIENT IS SITTING UP IN CHAIR WATCHING TV.
--- NOTE | 2021-01-29 14:52 | NUR ---
RECIEVED VERBAL ORDER TO TRANSFER PATIENT OVER TO [facility] [place] [facility] [address].
--- NOTE | 2021-01-29 15:11 | NUR ---
GAVE OFF VERBAL REPORT ABOUT THE PATIENT TO PORTILLO MCDOWELL ON [facility].
--- NOTE | 2021-01-29 15:11 | NUR ---
REPORT RECEIVED FROM NAE DE LEON
--- NOTE | 2021-01-29 16:03 | NUR ---
PT ARRIVED TO MED/SURG ROOM 284 IN STABLE CONDITION VIA WC ACCOMPANIED BY RICHARD COX;PT ASSISTED TO RECLINER PER REQUEST;A&O X3, ORIENTED TO ROOM AND CALL LIGHT SYSTEM;PT DENIES ANY CURRENT PAIN OR DISCOMFORTS,PAIN SCALE AND REPORTING EDUCATED;RESPIRATIONS EVEN AND UNLABORED ON O2 @ 2L VIA NC;IV SITE TO RH FLUSHED AND PATENT,SITE APPEARS HEALTHY;TELE MONITORING PLACED ON PT AT THIS TIME;WT AND VS OBTAINED BY RICHARD AGUILAR;PT REMAINS IN AIR.CONTACT PRECAUTIONS DUE TO COVID19 DX;PT ENCOURAGED TO CALL FOR ASSISTANCE IF NEEDED;FALL PRECAUTIONS IN PLACE WITH CALL LIGHT IN REACH;WILL CONTINUE TO MONITOR
--- NOTE | 2021-01-29 17:18 | NUR ---
PT OOB RESTING IN RECLINER;RESPIRATIONS EVEN AND UNLABORED ON O2 @ 2L VIA NC;T DENIES ANY CURRENT PAIN OR NEEDS;TELE MONITORING IN PLACE;IV SITE PATENT;PT ENCOURAGED TO CALL FOR ASSISTANCE;CALL LIGHT IN REACH;WILL CONTINUE TO MONITOR
--- NOTE | 2021-01-29 20:00 | NUR ---
PT SITTING IN CHAIR AT BEDSIDE WATCHING TV, NO SIGNS OF DISTRESS NOTED, RESP EVEN AND UNLABORED. PT ALERT AND ORIENTED X3, DISCUSSED POC, PT VOICES NO NEEDS OR COMPLAINTS AT THIS TIME, 02 2L NC, IV SITE LEAKING AND DUE TO BE CHANGED, IV REMOVED, CATHETER INTACT. ASSESSMENT COMPLETED, CALL LIGHT IN REACH,CONTINUE TO MONITOR.
--- NOTE | 2021-01-29 22:14 | NUR ---
PT SITTING IN CHAIR AT BEDSIDE, JUICES PROVIDED PER REQUEST. NEW IV SITE OBTAINED TO [facility], 1 ATTEMPT, PT TOLERATED WELL. PT VOICES NO NEEDS OR COMPLAINTS AT THIS TIME. CALL LIGHT IN REACH,CONTINUE TO MONITOR.
[2021-01-30] VITALS: BP 99/58
--- NOTE | 2021-01-30 | NUR ---
PT RESTING IN BED WITH EYES CLOSED, NO SIGNS OF DISTRESS NOTED, RESP EVEN AND UNLABORED. CALL LIGHT IN REACH,CONTINUE TO MONITOR.
--- NOTE | 2021-01-30 04:00 | NUR ---
PT RESTING IN BED WITH EYES CLOSED, NO SIGNS OF DISTRESS NOTED, RESP EVEN AND UNLABORED. CALL LIGHT IN REACH,CONTINUE TO MONITOR.
[2021-01-30 04:42] VITALS: BP 93/65
--- NOTE | 2021-01-30 05:09 | NUR ---
RADIOLOGY AT BEDSIDE FOR PORTABLE CXR. CALL LIGHT IN REACH,CONTINUE TO MONITOR.
[2021-01-30 05:40] LABS: HEMOGLOBIN 16.2 g/dl (14.0-18.0); IMMATURE GRANULOCYTES 0.4 % (0.0-5.0); MEAN CELL VOLUME 90.1 fL CALC (80.0-100.0); MEAN CORPUSCULAR HGB 29.2 pG CALC (26.0-32.0); MEAN CORPUSCULAR HGB CONC 32.4 g/dL CAL (32.0-36.0); NEUT# 10.14 thou/uL (1.82-7.42); RED BLOOD COUNT 5.55 mill/uL (4.70-6.10); RED CELL DISTRI WIDTH 13.6 % (11.5-15.5)
[2021-01-30 06:06] LABS: ANION GAP 10 (6-22 (CALC)); BUN 20 mg/dL (9-20); BUN/CREATININE RATIO 33 (12-20 (CALC)); C-REACTIVE PROTEIN 0.5 mg/dL (0-0.9); CARBON DIOXIDE 29 mmol/l (22-30); CHLORIDE 99 mmol/l (95-108); CREATININE 0.6 mg/dL (0.7-1.3); GFR > 60 ML/MIN (>=60 (CALC)); GFR FOR AFR.AMER. > 60 ML/MIN (>=60 (CALC)); POTASSIUM 4.6 mmol/l (3.5-5.1); SODIUM 134 mmol/l (137-146)
[2021-01-30 08:45] VITALS: BP 129/78
--- NOTE | 2021-01-30 08:45 | NUR ---
BEDSIDE REPORT RECEIVED AT CHANGE OF SHIFT. ASSESSMENT PERFORMED. NO COMPLAINTS WILL CONTINUE TO MONITOR.
[2021-01-30 11:34] VITALS: BP 130/65
--- NOTE | 2021-01-30 13:51 | NUR ---
6 MIN WALK TEST PERFORMED. PT TOLERATED WITH O2 SAT BETWEEN 88-92, NO O2. ABOUT 4TH MINUTE IN PT HR RISES TO 140S-170. PT IS ASYMPTOMATIC TO IT. Eric BONILLA MADE AWARE OF RESULT.
[2021-01-30 16:55] VITALS: BP 132/71
[2021-01-30 19:00] VITALS: BP 124/71
[2021-01-30] MEDS ORDERED: XARELTO20 MG PO (19:50)
[2021-01-30] MEDS ORDERED: CARDIZEM CD120 MG PO (19:53)
--- NOTE | 2021-01-30 20:00 | NUR ---
Patient up in chair. Alert and oriented. Respirations even and unlabored. No acute distress observed. hr irr. Telemetry Afib 100. VAD s/l. Assessment completed and charted. Bed in low position. Call light within reach.
[2021-01-31] VITALS: BP 90/57
--- NOTE | 2021-01-31 | NUR ---
Patient resting with eyes closed. Respirations even and unlabored on RA.
--- NOTE | 2021-01-31 01:18 | NUR ---
Patient had to urinate around 2300, patient could not hold urine, sat on side of bed and urinated all over the floor. Fer SONI observed and assisted patient with clean up. At 0015, patient had loose BM in bed, Fer SONI observed, cleaned patient up and changed linens. Patient resting quietly in bed. Bed in low position. Call light within reach.
--- NOTE | 2021-01-31 03:16 | NUR ---
NO ACUTE DISTRESS OBSERVED. RESTING WITH EYES CLOSED.
[2021-01-31 04:00] VITALS: BP 103/57
--- NOTE | 2021-01-31 04:24 | NUR ---
PATIENT C/O SORE THROAT, TYLENOL, HOT TEA WITH HONEY GIVEN.
[2021-01-31 05:22] LABS: HEMATOCRIT 49.9 % (39.0-50.0); MEAN CELL VOLUME 90.1 fL CALC (80.0-100.0); MEAN CORPUSCULAR HGB 28.9 pG CALC (26.0-32.0); MEAN CORPUSCULAR HGB CONC 32.1 g/dL CAL (32.0-36.0); RED BLOOD COUNT 5.54 mill/uL (4.70-6.10); RED CELL DISTRI WIDTH 13.9 % (11.5-15.5)
[2021-01-31 05:36] LABS: ANION GAP 8 (6-22 (CALC)); BUN 21 mg/dL (9-20); BUN/CREATININE RATIO 33 (12-20 (CALC)); CARBON DIOXIDE 30 mmol/l (22-30); CHLORIDE 101 mmol/l (95-108); CREATININE 0.6 mg/dL (0.7-1.3); GFR > 60 ML/MIN (>=60 (CALC)); GFR FOR AFR.AMER. > 60 ML/MIN (>=60 (CALC)); MAGNESIUM 2.2 mg/dL (1.6-2.3); POTASSIUM 4.1 mmol/l (3.5-5.1); SODIUM 135 mmol/l (137-146)
[2021-01-31 09:30] VITALS: BP 124/74
--- NOTE | 2021-01-31 09:30 | NUR ---
BEDSIDE REPORT RECEIVED AT CHANGE OF SHIFT. PT IS UP TO CHAIR, ASSESSMENT PERFORMED. WILL CONTINUE TO MONITOR.
[2021-01-31 13:37] VITALS: BP 113/74
--- NOTE | 2021-01-31 13:39 | NUR ---
Discharge instructions given. Patient verbalizes understanding of same. Discharged in stable condition via Wheelchair to *Other with family. All belongings sent with pt.
--- NOTE | 2021-01-31 19:04 | NUR ---
PT FAMILY CALLED STATED [facility] DID NOT HAVE PT PRESCRIPTION. SN NOTIFIED DENTAL NURSE, STATED TO CALL [facility] BLUNT STATED HE WOULD CALL.
== END 2021-01-31 14:00 | disposition home or self-care (01) | DRG 177 ==
LOC: ED 13:27 → ED-I 15:30 → ED 15:44 → ICU 15:45 → MS2 01-29 16:16
PROVIDERS: Family Medicine; Nurse Practitioner; ADMIT Hospitalist; ATTEND Internal Medicine
PROC: XW033E5 Introduction of Remdesivir Anti-infective into Peripheral Vein, Percutaneous Approach, New Technology Group 5 (ICD-10-PCS; principal; 2021-01-16)
PROC: 5A09357 Assistance with Respiratory Ventilation, Less than 24 Consecutive Hours, Continuous Positive Airway Pressure (ICD-10-PCS; 2021-01-16)
DX: U07.1 COVID-19 (principal); J12.82 Pneumonia due to coronavirus disease 2019; J96.21 Acute and chronic respiratory failure with hypoxia; J44.0 Chronic obstructive pulmonary disease with (acute) lower respiratory infection; Z68.42 Body mass index [BMI] 45.0-49.9, adult; I48.91 Unspecified atrial fibrillation; I10 Essential (primary) hypertension; E78.5 Hyperlipidemia, unspecified; F41.9 Anxiety disorder, unspecified; M10.062 Idiopathic gout, left knee; E66.01 Morbid (severe) obesity due to excess calories; Z87.891 Personal history of nicotine dependence
CPT/HCPCS: J1650; Q9967

== ENCOUNTER 2021-03-02 20:09 | Emergency (ER) | payer MEDICAID ==
[~2021-03-02] VITALS: Ht 167.6 cm; Wt 160.0 kg
[~2021-03-02 20:09] MED LIST changes: +ALLOPURINOL300 MG PO; +CARDIZEM CD120 MG PO; +DONEPEZIL HCL10 M1 PO; +FLOVENT HF110 MCG/AC; +FLUTICASON50 MCG/ACT; +NAMENDA10 MG PO; +PROAIR HFA IN; +WELLBUTRIN XL150 MG PO; +XARELTO20 MG PO; +ZOLPIDEM10 M1 PO
[2021-03-02 20:54] LABS: URINE BILIRUBIN - DIPSTICK NEGATIVE (NEGATIVE); URINE BLOOD DIPSTICK SMALL (NEGATIVE); URINE COLOR YELLOW; URINE GLUCOSE - DIPSTICK NEGATIVE (NEGATIVE); URINE KETONE NEGATIVE (NEGATIVE); URINE LEUK ESTERASE NEGATIVE (NEGATIVE); URINE PROTEIN - DIPSTICK NEGATIVE (NEG-TRACE); URINE UROBILINOGEN - DIPSTICK 0.2 E.U./dL (0.2)
[2021-03-02 20:55] LABS: URINE NITRITE - DIPSTICK NEGATIVE (Negative)
[2021-03-02 20:56] LABS: HEMATOCRIT 47.9 % (39.0-50.0); HEMOGLOBIN 15.6 g/dl (14.0-18.0); IMMATURE GRANULOCYTES 0.2 % (0.0-5.0); MEAN CELL VOLUME 90.4 fL CALC (80.0-100.0); MEAN CORPUSCULAR HGB 29.4 pG CALC (26.0-32.0); MEAN CORPUSCULAR HGB CONC 32.6 g/dL CAL (32.0-36.0); NEUT# 7.89 thou/uL (1.82-7.42); RED BLOOD COUNT 5.3 mill/uL (4.70-6.10); RED CELL DISTRI WIDTH 14.6 % (11.5-15.5)
[2021-03-02 21:08] LABS: URINE MUCUS FEW hpf (NONE-FEW); URINE SQUAMOUS EPITHELIAL CELL FEW EPI/hpf (0-FEW)
[2021-03-02 21:11] LABS: ANION GAP 10 (6-22 (CALC)); BILIRUBIN, TOTAL 0.6 mg/dL (0.0-1.4); BUN 15 mg/dL (9-20); BUN/CREATININE RATIO 21 (12-20 (CALC)); CARBON DIOXIDE 28 mmol/l (22-30); CHLORIDE 104 mmol/l (95-108); CREATININE 0.7 mg/dL (0.7-1.3); GFR > 60 ML/MIN (>=60 (CALC)); GFR FOR AFR.AMER. > 60 ML/MIN (>=60 (CALC)); SGOT/AST 26 u/l (17-59); SODIUM 138 mmol/l (137-146)
[2021-03-02 21:13] LABS: ALBUMIN 3.9 g/dL (3.2-5.0); ALKALINE PHOSPHATASE 111 u/l (38-126); D-DIMER 0.24 mg/L (0.19-0.60); TOTAL PROTEIN 7.1 g/dL (6.3-8.2)
[2021-03-02 21:18] LABS: ACT PARTIAL THROMBO TIME 26.1 SECONDS (20.0-32.5); INTERNATIONAL NORMALIZED RATIO 1.1 RATIO (0.7-1.3); PROTHROMBIN TIME 11.4 SECONDS (9.0-12.5)
[2021-03-02 21:23] LABS: MYOGLOBIN 14 ng/mL (0 - 121)
[2021-03-02] MEDS ORDERED: METOPROLOL100 M1 PO (22:11)
[2021-03-02] MEDS ORDERED: MAXZIDE-25MG1 COMBO PO (22:27)
[2021-03-02] MEDS ORDERED: DOXYCYCL HYC100 MG PO (22:27)
[2021-03-02 22:40] VITALS: BP 111/64
== END 2021-03-02 22:40 | disposition home or self-care (01) ==
LOC: ED 20:09
PROVIDERS: Family Medicine
DX: J44.9 Chronic obstructive pulmonary disease, unspecified (principal); I10 Essential (primary) hypertension; E66.01 Morbid (severe) obesity due to excess calories; F41.9 Anxiety disorder, unspecified; I48.91 Unspecified atrial fibrillation; M10.9 Gout, unspecified; Z79.01 Long term (current) use of anticoagulants; Z86.16 Personal history of COVID-19
CPT/HCPCS: Q9967

== ENCOUNTER 2021-05-13 23:02 | Emergency (ER) | payer MEDICAID ==
[~2021-05-13] VITALS: Ht 167.6 cm; Wt 136.4 kg
[~2021-05-13 23:02] MED LIST changes: +DOXYCYCL HYC100 MG PO; +MAXZIDE-25MG1 COMBO PO; +METOPROLOL100 M1 PO
[2021-05-14 01:23] LABS: HEMATOCRIT 48.2 % (39.0-50.0); HEMOGLOBIN 15.1 g/dl (14.0-18.0); IMMATURE GRANULOCYTES 0.2 % (0.0-5.0); MEAN CELL VOLUME 92.7 fL CALC (80.0-100.0); MEAN CORPUSCULAR HGB CONC 31.3 g/dL CAL (32.0-36.0); NEUT# 7.5 thou/uL (1.82-7.42); RED BLOOD COUNT 5.2 mill/uL (4.70-6.10); RED CELL DISTRI WIDTH 13.4 % (11.5-15.5)
[2021-05-14 01:42] LABS: ALBUMIN 3.6 g/dL (3.2-5.0); ALKALINE PHOSPHATASE 117 u/l (38-126); ANION GAP 6 (6-22 (CALC)); BILIRUBIN, TOTAL 0.9 mg/dL (0.0-1.4); BUN 20 mg/dL (9-20); BUN/CREATININE RATIO 23 (12-20 (CALC)); CARBON DIOXIDE 34 mmol/l (22-30); CHLORIDE 106 mmol/l (95-108); CREATININE 0.9 mg/dL (0.7-1.3); GFR > 60 ML/MIN (>=60 (CALC)); GFR FOR AFR.AMER. > 60 ML/MIN (>=60 (CALC)); POTASSIUM 4.2 mmol/l (3.5-5.1); PROTHROMBIN TIME 10.6 SECONDS (9.0-12.5); SGOT/AST 27 u/l (17-59); SODIUM 142 mmol/l (137-146); TOTAL PROTEIN 7.1 g/dL (6.3-8.2)
[2021-05-14] MEDS ORDERED: ULTRAM50 M1 PO (02:34)
[2021-05-14] MEDS ORDERED: KEFLEX500 MG PO (02:34)
[2021-05-14 03:53] VITALS: BP 128/78
== END 2021-05-14 03:55 | disposition home or self-care (01) ==
LOC: ED 23:02
PROVIDERS: Emergency Medicine
DX: S80.11XA Contusion of right lower leg, initial encounter (principal); I48.91 Unspecified atrial fibrillation; I10 Essential (primary) hypertension; F41.9 Anxiety disorder, unspecified; J44.9 Chronic obstructive pulmonary disease, unspecified; M10.9 Gout, unspecified; E66.01 Morbid (severe) obesity due to excess calories; W10.9XXA Fall (on) (from) unspecified stairs and steps, initial encounter; Y92.009 Unspecified place in unspecified non-institutional (private) residence as the place of occurrence of the external cause; Z79.01 Long term (current) use of anticoagulants; Z68.42 Body mass index [BMI] 45.0-49.9, adult

== ENCOUNTER 2024-04-21 01:03 | Emergency (ER) | payer MEDICARE ==
[~2024-04-21] VITALS: Ht 175.3 cm; Wt 159.0 kg
[~2024-04-21 01:03] MED LIST changes: +KEFLEX500 MG PO
[2024-04-21 01:27] VITALS: BP 126/82
[2024-04-21 01:31] VITALS: BP 128/82
[2024-04-21] MEDS ORDERED: TRULICITY SC (01:58)
[2024-04-21 02:17] LABS: BASO% 0.2 % (0-3); EOS% 3.4 % (0-8); HEMATOCRIT 51.9 % (39.0-50.0); HEMOGLOBIN 16.8 g/dl (14.0-18.0); IMMATURE GRANULOCYTES 0.3 % (0.0-5.0); LYMPH% 26.1 % (15-41); MEAN CELL VOLUME 91.2 fL CALC (80.0-100.0); MEAN CORPUSCULAR HGB 29.5 pG CALC (26.0-32.0); MEAN CORPUSCULAR HGB CONC 32.4 g/dL CAL (32.0-36.0); MONO% 10.4 % (2-13); NEUT# 6.31 thou/uL (1.82-7.42); NEUT% 59.6 % (42-76); RED BLOOD COUNT 5.69 mill/uL (4.70-6.10); RED CELL DISTRI WIDTH 13.8 % (11.5-15.5)
[2024-04-21 02:28] LABS: ALBUMIN 3.8 g/dL (3.2-5.0); ALKALINE PHOSPHATASE 99 u/l (38-126); ANION GAP 10 (6-22 (CALC)); BILIRUBIN, TOTAL 0.7 mg/dL (0.2-1.3); BUN 17 mg/dL (8-23); BUN/CREATININE RATIO 22 (12-20 (CALC)); CARBON DIOXIDE 33 mmol/l (22-30); CHLORIDE 101 mmol/l (95-108); CPK 27 u/l (55-170); CREATININE 0.8 mg/dL (0.7-1.3); ESTIMATED GFR 99 ML/MIN (>=90 (CALC)); LIPASE 192 u/l (23-300); MAGNESIUM 2.3 mg/dL (1.6-2.3); POTASSIUM 4.5 mmol/l (3.5-5.1); SGOT/AST 29 u/l (19-48); SODIUM 139 mmol/l (137-146); TOTAL PROTEIN 6.9 g/dL (6.3-8.2)
[2024-04-21 02:32] LABS: INTERNATIONAL NORMALIZED RATIO 1.2 RATIO (0.7-1.3); PROTHROMBIN TIME 12.3 SECONDS (9.0-12.5)
[2024-04-21 06:04] VITALS: BP 128/82
== END 2024-04-21 06:04 | disposition home or self-care (01) ==
LOC: ED 01:03
PROVIDERS: Internal Medicine
DX: R04.2 Hemoptysis (principal); R91.8 Other nonspecific abnormal finding of lung field; E04.1 Nontoxic single thyroid nodule; I10 Essential (primary) hypertension; F41.9 Anxiety disorder, unspecified; E66.01 Morbid (severe) obesity due to excess calories; J44.9 Chronic obstructive pulmonary disease, unspecified; I48.91 Unspecified atrial fibrillation
CPT/HCPCS: Q9967

== ENCOUNTER 2024-05-25 16:30 | Emergency (ER) | payer MEDICARE ==
[~2024-05-25] VITALS: Ht 175.3 cm; Wt 159.0 kg
[2024-05-25] VITALS (10 sets, daily range): BP systolic 96–117; BP diastolic 58–67
[~2024-05-25 16:30] MED LIST changes: +TRULICITY SC
[2024-05-25] MEDS ORDERED: Diph, Acellular Pertussis, Tet 0.5 ML/VIAL (Tdap) SDV IM ONE (17:00)
[2024-05-25 17:23] LABS: BASO% 0.4 % (0-3); EOS% 1.3 % (0-8); HEMATOCRIT 54.1 % (39.0-50.0); HEMOGLOBIN 17.3 g/dl (14.0-18.0); IMMATURE GRANULOCYTES 0.3 % (0.0-5.0); LYMPH% 23.6 % (15-41); MEAN CELL VOLUME 90.6 fL CALC (80.0-100.0); MONO% 12.4 % (2-13); NEUT# 6.97 thou/uL (1.82-7.42); RED BLOOD COUNT 5.97 mill/uL (4.70-6.10)
[2024-05-25 17:37] LABS: CREATININE 0.8 mg/dL (0.7-1.3); POTASSIUM 4.6 mmol/l (3.5-5.1)
[2024-05-25] MEDS ORDERED: CEPHALEXIN500 M1 PO (18:33)
== END 2024-05-25 18:59 | disposition home or self-care (01) ==
LOC: ED 16:30
PROVIDERS: Family Medicine
DX: L03.116 Cellulitis of left lower limb (principal); I10 Essential (primary) hypertension; F41.9 Anxiety disorder, unspecified; J44.9 Chronic obstructive pulmonary disease, unspecified; I48.91 Unspecified atrial fibrillation; E66.01 Morbid (severe) obesity due to excess calories
CPT/HCPCS: 90715; J0690